=== PATIENT | female | born 1935 | race Caucasian/White ===

== ENCOUNTER 2020-08-18 18:24 | Inpatient (IN) | payer MEDICARE, BC, SELFPAY ==
[2020-08-18] VITALS (8 sets, daily range): BP systolic 106–143; BP diastolic 70–89; PULSE 97–115; RESP 17–21; TEMP 36.1–36.9; O2SAT 90–97; BMI 28.8
--- NOTE | ~2020-08-18 | XR_ITS ---
XR chest 1V portable 08/18/2020 19:20 Indication: Shortness of breath. CHF. COPD. Procedure: AP portable chest Comparison: Comparison to multiple prior studies sequentially, with oldest reviewed study dated 03/15. Findings: Cardiomegaly. Diffuse bilateral perihilar interstitial infiltrates. Right basilar atelectas is. No acute osseous abnormality. No pleural effusion or pneumothorax. There is atherosclerosis of th e aorta. Impression: 1: Bilateral perihilar interstitial infiltrates, most likely edema versus atypical pneumonia. 2: Right basilar atelectasis. Reviewed, dictated and finalized at location A. [facility] [employer] Impression: 1: Bilateral perihilar interstitial infiltrates, most likely edema versus atypi karl pneumonia. 2: Right basilar atelectasis.
--- NOTE | ~2020-08-18 | XR_ITS ---
EXAMINATION: XR chest 2V DATE: 08/20/2020 08:05 INDICATION: Shortness of breath TECHNIQUE: AP and lateral views of the chest are obtained. COMPARISON: 08/18/2020 FINDINGS: The patient is rotated. There is linear opacity in the right lung base. Small pleural effus ions are present. There is no pneumothorax. There is stable cardiomegaly. Chronic lower thoracic and upper lumbar compression fractures are unchanged. Calcified atherosclerosis is noted. IMPRESSION: 1. Stable cardiomegaly. 2. Linear opacity of the right lung base, likely subsegmental atelectasis. Reviewed, dictated and finalized at location A. ARTISAN
--- NOTE | 2020-08-18 18:45 | ECG_ITS ---
Measurements Intervals [place] Rate: 115 P: [place]: 0 QRS: -5 QRSD: 73 T: 60 QT: 306 QTc: 423 Interpretive Statements ATRIAL FIBRILLATION WITH RAPID VENTRICULAR RESPONSE DELAYED PRECORDIAL R/S TRANSITION BORDERLINE ST-T WAVE ABNORMALITY- ANTEROLAT/HIGH LAT LEADS BASELINE ARTIFACT- I, II, AVR, AVL, AVF, V1-V6 ABNORMAL ECG Electronically Signed On 08-19-2020 7:21:12 [employer] ARCHITECT by Finn Gonzalez D.O.
--- NOTE | 2020-08-18 18:56 | ED.SOB ---
HPI - SOB/Dyspnea General Chief Complaint: Shortness of Breath/Dyspnea Stated Complaint: SOB Source: RN notes reviewed History of Present Illness HPI Narrative: Patient presents to emergency department from [facility] via EMS for shortness of breath. Per staff they noted the patient to be blue in color today and took her pulse ox noted to be in the 80s. At that time she is placed on 2 L nasal cannula and transferred to the ED for further evaluation. The patient does note a feeling of some shortness of breath. She denies any fevers or chills chest pain abdominal pain nausea vomiting or any other symptoms. Related Data Home Medications Medication Instructions Recorded Confirmed acetaminophen 1,000 mg PO BID PRN 08/18/20 acetaminophen 650 mg PO Q4-6H PRN 08/18/20 alum-mag hydroxide-simeth [Maalox 30 ml PO QID PRN 08/18/20 Advanced] aspirin 81 mg PO DAILY 08/18/20 bisacodyl 10 mg IN DAILY PRN 08/18/20 buspirone 10 mg PO TID 08/18/20 duloxetine 60 mg PO DAILY 08/18/20 fluticasone propion-salmeterol 1 inh INHALATION BID 08/18/20 fluticasone propionate [Flonase] 2 spray INTRANASAL DAILY 08/18/20 furosemide 40 mg PO DAILY 08/18/20 gabapentin 100 mg PO BID 08/18/20 guaifenesin 200 mg PO QID PRN 08/18/20 hydrocodone-acetaminophen 1 tablet PO QID PRN 08/18/20 levalbuterol HCl 1.25 mg INHALATION QID 08/18/20 levalbuterol tartrate 1 puff INHALATION QID 08/18/20 magnesium hydroxide [Milk of 30 ml PO DAILY PRN 08/18/20 Magnesia] metoprolol tartrate 12.5 mg PO BID 08/18/20 mirtazapine 7.5 mg PO HS 08/18/20 pantoprazole 20 mg PO DAILY 08/18/20 polyethylene glycol 3350 [Miralax] 17 g PO DAILY PRN 08/18/20 spironolactone 25 mg PO DAILY 08/18/20 Allergies Allergy/AdvReac Type Severity Reaction Status Date / Time apixaban Allergy Unknown Other Verified 03/19/19 00:48 Review of Systems Review of Systems: Narrative: Gen.: Denies fevers or chills ENT: Denies congestion Respiratory: See HPI CV: Denies chest pain or palpitations GI: Denies abdominal pain nausea, emesis or diarrhea Musculoskeletal: Denies back pain or muscle pain Neuro: Denies numbness, tingling, weakness or focal weakness Skin: Denies rash Except as documented, all other systems reviewed and negative [facility] Past Medical History Medical History (Updated 08/18/20 @ 21:01 by Royal Vora DO) Atrial fibrillation CHF (congestive heart failure) COPD (chronic obstructive pulmonary disease) CVA (cerebral vascular accident) Hypertension Social History Social History (Updated 08/18/20 @ 18:58 by Royal Vora DO) Smoking status: Former smoker Exam Narrative: Exam Narrative: APPEARANCE: No acute distress, nontoxic, resting in bed EYES: EOMI HEENT: Normocephalic, atraumatic, OMM RESPIRATORY: No respiratory distress crackles in bilateral lung bases, no wheezing CARDIOVASCULAR: Irregular irregular without murmurs rubs or gallops. ABDOMINAL: Soft, nontender, nondistended, no rebound or guarding MUSCULOSKELETAl: Moves all extremities. No clubbing, cyanosis or edema. NEURO: Awake and alert. Following commands, speech normal, no focal deficits SKIN:: Warm, dry. No rashes lesions or abrasions PSYCHIATRIC: Normal affect/mood, Course Course Emergency Course: Reviewed old records Patient does note shortness of breath resting in bed. His pain worsens with her and move around in bed activities. Patient does have A. fib she is due for metoprolol 12.5 mg this evening and will give at this time Dr. Fitzgerald presentation work-up agrees with admission at this time. Will give a dose of Lasix 40 mg placed on MedSurg telemetry Discussed with patient and family results of workup and diagnosis. Discussed need for admission. Patient and family understand and agree to current treatment plan Vital Signs Vital signs: Vital Signs Temperature 98.0 F 08/18/20 18:43 Pulse Rate 115 H 08/18/20 18:43 Respiratory Rate 17 08/18/20 18:43 Blood Pressure 143/
[2020-08-18 19:21] LABS: Basophils Percent Auto 0.3 % (0.2-1.2); Eosinophils Percent Auto 0.3 % (0-4.4); Hematocrit 37.9 % (37.0-47.0); Hemoglobin 12.4 g/dL (12.0-15.0); Immature Granulocyte Absolute 0.06 K/mm3 (0.00-0.031); Immature Granulocyte Percent A 0.5 % (0-0.5); Lymphocytes Absolute Auto 0.74 K/mm3 (0.9-3.2); Lymphocytes Percent Auto 6.1 % (18.3-44.2); Mean Corpuscular HGB Conc 32.7 g/dl (32-36); Mean Corpuscular Hemoglobin 32.9 pg (26-34); Mean Corpuscular Volume 100.5 fl (80-100); Mean Platelet Volume 9.2 fl (7.4-10.4); Monocytes Absolute Auto 0.9 K/mm3 (0.1-0.6); Monocytes Percent Auto 7.8 % (2.6-8.5); Neutrophils Absolute Auto 10.3 K/mm3 (1.3-6.7); Platelet Count Result 290 k/mm3 (150-375); Red Blood Count 3.77 M/mm3 (4.2-5.4); Red Cell Distribution Width 13.6 % (11.5-14.5); White Blood Count 12.1 K/mm3 (4.5-10.0)
[2020-08-18 19:31] LABS: INR 1.2
[2020-08-18 19:32] LABS: Partial Thromboplastin Time 34.3 SECONDS (22.3-36.8)
[2020-08-18 19:33] LABS: Anion Gap 8 mmol/L (8-16); Blood Urea Nitrogen 32 mg/dL (7-17); Calcium 9.3 mg/dL (8.4-10.2); Carbon Dioxide 30 mmol/L (22-30); Chloride 97 mmol/L (98-107); Estimated Glomerular Filt Rate 39; Glucose 154 mg/dL (65-105); Potassium 4.9 mmol/L (3.4-5.0); Sodium 135 mmol/L (137-145)
[2020-08-18 19:46] LABS: NT Pro B Type Natriuretic Pept 3370 PG/ML (5-100); Troponin I 0.018 ng/mL (0.000-0.034)
[2020-08-18] MEDS: METOPROLOL TARTRATE 12.5 MG TABLET PO (20:14)
[2020-08-18] MEDS: FUROSEMIDE INJ 40 MG/4 ML VIAL IV PUSH (22:01)
--- NOTE | 2020-08-18 23:03 | ADMGEN ---
This patient, Mary George, was admitted to 2 Medical Room 251-01. Patient/family oriented to hospital policies and general routines including ID bracelet, bed and alarms, visiting hours, pain management, procedures, bathroom and other care routines, personal items, smoking policy, room service/diet, and visiting hours. Information on how to activate the Rapid Response Team has been discussed. Patient/Family are encouraged to report perceived risks to care and to ask questions if they do not understand what they are told or what they should do.
[2020-08-19] VITALS (12 sets, daily range): BP systolic 103–137; BP diastolic 60–80; PULSE 85–124; RESP 18–24; TEMP 36.2–37.6; O2SAT 93–100
[2020-08-19 00:36] LABS: Troponin I 0.015 ng/mL (0.000-0.034)
[2020-08-19 03:04] LABS: Basophils Absolute Auto 0.1 K/mm3 (0.0-0.1); Basophils Percent Auto 0.5 % (0.2-1.2); Eosinophils Absolute Auto 0.1 K/mm3 (0-0.3); Eosinophils Percent Auto 0.7 % (0-4.4); Hematocrit 37.5 % (37.0-47.0); Immature Granulocyte Absolute 0.03 K/mm3 (0.00-0.031); Immature Granulocyte Percent A 0.3 % (0-0.5); Lymphocytes Absolute Auto 1.06 K/mm3 (0.9-3.2); Lymphocytes Percent Auto 10.9 % (18.3-44.2); Mean Corpuscular Hemoglobin 32.3 pg (26-34); Mean Corpuscular Volume 100.8 fl (80-100); Mean Platelet Volume 9.4 fl (7.4-10.4); Monocytes Absolute Auto 1.4 K/mm3 (0.1-0.6); Monocytes Percent Auto 14.4 % (2.6-8.5); Neutrophils Absolute Auto 7.1 K/mm3 (1.3-6.7); Neutrophils Percent Auto 73.2 % (45.5-73.1); Platelet Count Result 277 k/mm3 (150-375); Red Blood Count 3.72 M/mm3 (4.2-5.4); Red Cell Distribution Width 13.6 % (11.5-14.5); White Blood Count 9.8 K/mm3 (4.5-10.0)
[2020-08-19 03:07] LABS: Anion Gap 8 mmol/L (8-16); Blood Urea Nitrogen 34 mg/dL (7-17); Calcium 9.4 mg/dL (8.4-10.2); Carbon Dioxide 33 mmol/L (22-30); Chloride 95 mmol/L (98-107); Estimated CRCL calculation 26 ml/min; Estimated Glomerular Filt Rate 39; Glucose 120 mg/dL (65-105); Potassium 4.8 mmol/L (3.4-5.0); Sodium 136 mmol/L (137-145)
[2020-08-19 03:19] LABS: Troponin I 0.017 ng/mL (0.000-0.034)
--- NOTE | 2020-08-19 06:46 | PM.IMHP ---
H&P: HPI History of Present Illness Date/Time: 08/19/20 05:20 Chief complaint: chf, dyspnea Narrative: Source of information: ER records and past medical records. Patient is alert and oriented only to self. Mary George is a 85 year old female with a past medical history of CVA, dementia, atrial fibrillation, diastolic congestive heart failure, COPD and diabetes who presented to the ER [facility] due to hypoxia. The patient does have a history of COPD with intermittent oxygen requirement. The patient was placed on 2 L nasal cannula patient was transferred to the ER. To the ER her oxygen saturations were between 90 and 94% on room air. The patient had evidently reported some shortness of breath to the ER staff but simply states ?help me? multiple times was in the room. After going through list of possible options to help the patient the patient finally indicated that she wanted to drink of water. She denies having any pain. The patient does not seem to be in any respiratory distress or discomfort. She does follow commands but has difficulty providing any history. The patient and does have a history of atrial fibrillation and her heart rate was slightly elevated in the ER. She had not received her evening metoprolol. This was provided for her in the ER. Her heart rate still remains in the low 100s. This a.m. the patient's temperature was slightly elevated to 99.6. Her chest x-ray does demonstrate perihilar interstitial infiltrates most likely edema versus atypical pneumonia. She did have leukocytosis on her initial CBC but her leukocytosis resolved without antibiotic therapy. Review of Systems Review of Systems: ROS unobtainable: Yes unobtainable due to mental status (Dementia) [facility]LY [facility] Past Medical History Medical History (Updated 08/19/20 @ 07:22 by Cher Fitzgerald DO) Atrial fibrillation No longer on anticoagulation due to recurrent anemia CHF (congestive heart failure) COPD (chronic obstructive pulmonary disease) With intermittent oxygen requirement Coronary artery disease CVA (cerebral vascular accident) September 2016 Depression with anxiety Diabetes mellitus Diet controlled Diastolic CHF Echocardiogram February 2018: Mild concentric left ventricular hypertrophy with sigmoid hypertrophy, EF 60 dizzy 5%, moderate enlargement of left atrium, moderate biatrial enlargement, mild mitral valve regurgitation, mild aortic valve regurgitation, moderate pulmonary hypertension with RVSP of 62, moderate to severe tricuspid valve regurgitation, dilated IVC without respiratory collapse consistent with elevated right atrial pressures Hypertension Uterine cancer Hysterectomy and radiation therapy Surgical History Surgical History (Updated 08/19/20 @ 07:06 by Cher Fitzgerald DO) History of appendectomy History of bilateral cataract extraction History of hip replacement, total Due to fracture History of hysterectomy for malignancy 1998 History of umbilical hernia repair Hx of cholecystectomy Family History Family History Mother Dementia Father Cerebrovascular accident Myocardial infarct Hypertension Sibling Diabetes mellitus Uterine cancer Son Crohn's disease Social History Social History (Updated 08/19/20 @ 07:11 by Cher Fitzgerald DO) Social History: The patient has smoked half a pack of cigarettes per day for 60 years. She quit in September of 2016 when she had her stroke. She is wheelchair dependent. Healthcare power of workers compensation attorney: Edson George Code status: DNR/DNI Smoking packs per day: 0.5 Smoking cigarettes per day: 10.0 Years smoked: 60 Smoking pack-years: 30.00 Smoking status: Former smoker Tobacco type: cigarettes Second hand tobacco smoke exposure: Yes Smoking end date: 09/17/16 Alcohol intake: never Substance use: never Living arrangements: prison Additional living arrangements com
[2020-08-19 07:26] LABS: Basophils Percent Auto 0.4 % (0.2-1.2); Eosinophils Absolute Auto 0.1 K/mm3 (0-0.3); Eosinophils Percent Auto 0.7 % (0-4.4); Hematocrit 36.9 % (37.0-47.0); Immature Granulocyte Absolute 0.03 K/mm3 (0.00-0.031); Immature Granulocyte Percent A 0.3 % (0-0.5); Lymphocytes Absolute Auto 1.07 K/mm3 (0.9-3.2); Lymphocytes Percent Auto 11.3 % (18.3-44.2); Mean Corpuscular HGB Conc 32.5 g/dl (32-36); Mean Corpuscular Hemoglobin 32.4 pg (26-34); Mean Corpuscular Volume 99.7 fl (80-100); Mean Platelet Volume 9.4 fl (7.4-10.4); Monocytes Absolute Auto 1.2 K/mm3 (0.1-0.6); Monocytes Percent Auto 12.4 % (2.6-8.5); Neutrophils Absolute Auto 7.1 K/mm3 (1.3-6.7); Neutrophils Percent Auto 74.9 % (45.5-73.1); Platelet Count Result 281 k/mm3 (150-375); Red Cell Distribution Width 13.7 % (11.5-14.5); White Blood Count 9.5 K/mm3 (4.5-10.0)
[2020-08-19 07:37] LABS: Anion Gap 8 mmol/L (8-16); Blood Urea Nitrogen 30 mg/dL (7-17); Calcium 9.3 mg/dL (8.4-10.2); Carbon Dioxide 32 mmol/L (22-30); Chloride 95 mmol/L (98-107); Estimated CRCL calculation 28 ml/min; Estimated Glomerular Filt Rate 43; Glucose 112 mg/dL (65-105); Potassium 4.2 mmol/L (3.4-5.0); Sodium 135 mmol/L (137-145)
[2020-08-19] MEDS: GABAPENTIN 100 MG CAPSULE PO ×2 (09:02→17:24)
[2020-08-19] MEDS: ACETAMINOPHEN 500 MG TABLET 1000 MG PO ×2 (09:02→20:10)
[2020-08-19] MEDS: FUROSEMIDE INJ 40 MG/4 ML VIAL IV PUSH (09:02)
[2020-08-19] MEDS: METOPROLOL TARTRATE 12.5 MG TABLET PO ×2 (09:03→20:10)
[2020-08-19] MEDS: DULoxetine HCL 60 MG CAPSULE.DR PO (09:05)
[2020-08-19] MEDS: ASPIRIN 81 MG CHEWABLE TABLET PO (09:05)
[2020-08-19] MEDS: busPIRone HCL 10 MG TABLET PO ×3 (09:06→17:24)
[2020-08-19] MEDS: PANTOPRAZOLE SOD SESQUIHYDRATE 20 MG TAB PO (09:06)
[2020-08-19] MEDS: SPIRONOLACTONE 25 MG TABLET PO (09:06)
[2020-08-19] MEDS: FLUTICASONE/SALMETEROL 115-21 MCG INHALER 1 PUFF 2 PUFF INHALATION ×2 (09:49→20:01)
[2020-08-19] MEDS: LEVALBUTEROL HFA (*SP) 15 GM INHALER 4 PUFF INHALATION ×4 (09:49→20:01)
--- NOTE | 2020-08-19 11:40 | PM.IMPN ---
Progress Note: A&P Assessment and Plan (1) Abnormal chest x-ray: Code(s): R93.89 - Abnormal findings on diagnostic imaging of other specified body structures Status: Acute Assessment and Plan: Compared with prior chest xr more likely to be fluid overload Lives at [facility] however no Covid 19 positive cases at the facility T max was 99.7 Afebrile O2 sat on room air = 95% Hold off on Covid swab Mild Leukocytosis on admission now resolved Will repeat chest xr in am Currently diuresing (2) Acute renal insufficiency: Code(s): N28.9 - Disorder of kidney and ureter, unspecified Status: Acute Assessment and Plan: Mild from patient's baseline Daily labs Continue to monitor Bun/Cr (3) COPD (chronic obstructive pulmonary disease): Qualifiers: COPD type: unspecified COPD Qualified Code(s): J44.9 - Chronic obstructive pulmonary disease, unspecified Code(s): J44.9 - Chronic obstructive pulmonary disease, unspecified Status: Acute Assessment and Plan: Continue breathing treatments. Spot check pulse ox. (4) Hypertension: Code(s): I10 - Essential (primary) hypertension Status: Acute Assessment and Plan: Stable Continue to monitor (5) CVA (cerebral vascular accident): Code(s): I63.9 - Cerebral infarction, unspecified Status: Acute Assessment and Plan: Stable continue to monitor. (6) CHF (congestive heart failure): Qualifiers: Heart failure chronicity: acute on chronic Heart failure type: diastolic Qualified Code(s): I50.33 - Acute on chronic diastolic (congestive) heart failure Code(s): I50.9 - Heart failure, unspecified Status: Acute Assessment and Plan: Strict I/O's daily Gentle diuresis Telemonitoring Commode at bed side (7) Atrial fibrillation: Qualifiers: Atrial fibrillation type: persistent (not longstanding) Qualified Code(s): I48.19 - Other persistent atrial fibrillation Code(s): I48.91 - Unspecified atrial fibrillation Status: Acute Assessment and Plan: Rate controlled Subjective Date/time seen: 08/19/20 11:40 Patient has no complains at this time. Review of Systems Review of Systems: Narrative: No complains at this time however appears hypoactive delirious ROS unobtainable: Yes unobtainable due to medical condition Exam Narrative: Exam Narrative: Appears acutely ill. Const: General: no acute distress and ill appearing Nutritional Appearance: thin Orientation/consciousness: oriented to person HENMT: Head: normal to inspection and normocephalic Ears: hearing grossly normal bilaterally General nose exam: Normal external nose present Face and sinus: normal facial exam Mouth: Yes Normal oral and palatal mucosa present Eyes: General: appearance normal, both eyes and all related structures Pupils: Equal, round and reactive pupils present EOM: EOMs intact bilaterally Neck: Neck: no lymphadenopathy and no JVD Lymphatic: no lymphadenopathy noted Resp: Effort & Inspection: normal respiratory effort Auscultation: clear to auscultation bilaterally Cardio: Jugular venous distension: no JVD Rate: regular rate Rhythm: regular rhythm Heart sounds: S1 normal heart sound present and S2 normal heart sound present Peripheral pulses: Peripheral pulses 2+ throughout GI: Inspection: normal to inspection GI Palp: Yes Soft to palpation and Yes No hepatosplenomegaly present Auscultation: normal bowel sounds Skin: General skin exam: normal color Lesions: no lesions Rashes: no rashes Trauma: no lacerations or abrasions Wounds: no wounds Neuro: General: oriented to person, CN's II-XI intact bilaterally and other (hypoactive delirium) Cranial nerves: Yes CN's II-XII intact bilaterally and Yes Equal, round and reactive pupils present Cognition (Neuro): normal cognition Speech: normal speech Motor exam (neuro): 5/5 motor strength present throughou
[2020-08-19] MEDS: HYDROcodone/acetaminophen (*CRX) 7.5-325 MG TABLET 1 TAB PO (14:40)
[2020-08-19] MEDS: FUROSEMIDE INJ 40 MG/4 ML VIAL 20 MG IV PUSH (17:24)
[2020-08-19 18:08] LABS: Add Urine Microscopic? YES; Appearance Urine Turbid (Clear); Bacteria Urine 2+ /hpf; Bilirubin Urine Negative (Negative); Blood Urine 1+ (Negative); Color Urine Yellow (Yellow); Glucose Urine UA Negative (Negative); Ketones Urine Negative (Negative); Leukocyte Esterase Ur 3+ LEU/UL (Negative); Nitrate Urine Negative (Negative); Protein Urine 2+ mg/dL (Negative); RBC Urine 51-75 /hpf (0-2); Specific Grav Ur 1.011 (1.001-1.035); Urobilinogen Urine Negative mg/dL (<2.0); WBC Clumps Urine Present /HPF; WBC Urine >75 /hpf
[2020-08-19 18:21] LABS: Influenza Control Positive
[2020-08-19] MEDS: MIRTAZAPINE 7.5 MG TABLET PO (20:10)
[2020-08-20] VITALS (14 sets, daily range): BP systolic 106–116; BP diastolic 59–84; PULSE 85–136; RESP 16–20; TEMP 36.3–37.2; O2SAT 93–100
[2020-08-20] MEDS: HYDROcodone/acetaminophen (*CRX) 7.5-325 MG TABLET 1 TAB PO ×2 (05:24→17:58)
[2020-08-20 08:00] LABS: Basophils Percent Auto 0.5 % (0.2-1.2); Eosinophils Absolute Auto 0.1 K/mm3 (0-0.3); Hematocrit 38.4 % (37.0-47.0); Hemoglobin 12.6 g/dL (12.0-15.0); Immature Granulocyte Absolute 0.05 K/mm3 (0.00-0.031); Immature Granulocyte Percent A 0.8 % (0-0.5); Lymphocytes Absolute Auto 0.82 K/mm3 (0.9-3.2); Lymphocytes Percent Auto 12.7 % (18.3-44.2); Mean Corpuscular HGB Conc 32.8 g/dl (32-36); Mean Corpuscular Hemoglobin 32.8 pg (26-34); Mean Platelet Volume 9.4 fl (7.4-10.4); Monocytes Absolute Auto 0.9 K/mm3 (0.1-0.6); Monocytes Percent Auto 13.8 % (2.6-8.5); Neutrophils Absolute Auto 4.5 K/mm3 (1.3-6.7); Neutrophils Percent Auto 70.2 % (45.5-73.1); Platelet Count Result 249 k/mm3 (150-375); Red Blood Count 3.84 M/mm3 (4.2-5.4); Red Cell Distribution Width 13.8 % (11.5-14.5); White Blood Count 6.4 K/mm3 (4.5-10.0)
[2020-08-20 08:13] LABS: Anion Gap 10 mmol/L (8-16); Blood Urea Nitrogen 37 mg/dL (7-17); Calcium 9.1 mg/dL (8.4-10.2); Carbon Dioxide 31 mmol/L (22-30); Chloride 97 mmol/L (98-107); Estimated CRCL calculation 28 ml/min; Estimated Glomerular Filt Rate 43; Glucose 120 mg/dL (65-105); Magnesium 1.6 mg/dL (1.6-2.3); Potassium 3.8 mmol/L (3.4-5.0); Sodium 138 mmol/L (137-145)
[2020-08-20] MEDS: ACETAMINOPHEN 500 MG TABLET 1000 MG PO ×2 (08:24→20:38)
[2020-08-20] MEDS: FUROSEMIDE INJ 40 MG/4 ML VIAL 20 MG IV PUSH ×2 (08:25→17:51)
[2020-08-20] MEDS: PANTOPRAZOLE SOD SESQUIHYDRATE 20 MG TAB PO (08:25)
[2020-08-20] MEDS: SPIRONOLACTONE 25 MG TABLET PO (08:25)
[2020-08-20] MEDS: busPIRone HCL 10 MG TABLET PO ×3 (08:25→17:50)
[2020-08-20] MEDS: GABAPENTIN 100 MG CAPSULE PO ×2 (08:25→17:51)
[2020-08-20] MEDS: DULoxetine HCL 60 MG CAPSULE.DR PO (08:25)
[2020-08-20] MEDS: ASPIRIN 81 MG CHEWABLE TABLET PO (08:25)
[2020-08-20] MEDS: METOPROLOL TARTRATE 12.5 MG TABLET PO ×2 (08:26→20:38)
[2020-08-20] MEDS: FLUTICASONE/SALMETEROL 115-21 MCG INHALER 1 PUFF 2 PUFF INHALATION ×2 (09:24→20:21)
[2020-08-20] MEDS: LEVALBUTEROL HFA (*SP) 15 GM INHALER 4 PUFF INHALATION ×4 (09:24→20:21)
[2020-08-20] MEDS: MAG HYDROX/AL HYDROX/SIMETH 30 ML UDC PO (11:35)
--- NOTE | 2020-08-20 16:25 | PM.IMPN ---
Progress Note: A&P Assessment and Plan (1) Abnormal chest x-ray: Code(s): R93.89 - Abnormal findings on diagnostic imaging of other specified body structures Status: Acute Assessment and Plan: Compared with prior CXR more likely to be fluid overload with possible mild acute diastolic CHF exacerbation. CXR today shows possible slight improvement in perihilar infiltrates. Lives at SNF however no Covid 19 positive cases at the facility. Afebrile during stay. VSS. Sat >90% on RA during stay. Mild Leukocytosis on admission now resolved Currently diuresing with IV Lasix BID Monitor I/Os Monitor for improvement If continued improvement, consider discharge in 1-2 days COVID testing pending for her to return to [place] (2) Acute renal insufficiency: Code(s): N28.9 - Disorder of kidney and ureter, unspecified Status: Acute Assessment and Plan: Mild from patient's baseline. Cr stable today at 1.20 Monitor daily labs with diuresis (3) COPD (chronic obstructive pulmonary disease): Qualifiers: COPD type: unspecified COPD Qualified Code(s): J44.9 - Chronic obstructive pulmonary disease, unspecified Code(s): J44.9 - Chronic obstructive pulmonary disease, unspecified Status: Acute Assessment and Plan: No wheezing noted on exam. Stable Continue breathing treatments. Continue home meds' Monitor (4) Hypertension: Code(s): I10 - Essential (primary) hypertension Status: Acute Assessment and Plan: Stable. BP 110s sys this afternoon Continue to monitor during IV diuresis Continue other home antihypertensives (5) CVA (cerebral vascular accident): Code(s): I63.9 - Cerebral infarction, unspecified Status: Acute Assessment and Plan: Stable continue to monitor. continue home meds (6) CHF (congestive heart failure): Qualifiers: Heart failure chronicity: acute on chronic Heart failure type: diastolic Qualified Code(s): I50.33 - Acute on chronic diastolic (congestive) heart failure Code(s): I50.9 - Heart failure, unspecified Status: Acute Assessment and Plan: Possible mild acute diastolic CHF exacerbation with fluid overload. Strict I/O's daily Gentle diuresis as above Telemonitoring Commode at bed side (7) Atrial fibrillation: Qualifiers: Atrial fibrillation type: persistent (not longstanding) Qualified Code(s): I48.19 - Other persistent atrial fibrillation Code(s): I48.91 - Unspecified atrial fibrillation Status: Acute Assessment and Plan: Rate controlled Continue home metoprolol Subjective Date/time seen: 08/20/20 16:25 Interval history: Patient is a 85 yo F with history of past CVA, CHF, COPD, CAD, DM, and HTN who is seen in follow up for fluid overload and mild CHF exacerbation and ARF. Patient states she feels okay today; feels overall better. She confirms she has a difficult time expressing her self but is able to answer questions appropriately with yes/no. She denies chest pain or shortness of breath. She endorses worsening swelling in her LE prior to arrival; unable to tell me if this has improved since arrival. She has no other complaints. Denies f/c/s, cp/palpitations, sob/cough, n/v/d/c, abd pain, dysuria, calf pain. She is able to tell me she is in the hospital, but has difficult time expressing her name, year, , or president Review of Systems Review of Systems: ROS unobtainable: Yes unobtainable due to medical condition and unobtainable due to mental status (Dementia) Exam Narrative: Exam Narrative: General: Patient resting on left side in bed in no acute distress. HEENT: N
[2020-08-20] MEDS: MIRTAZAPINE 7.5 MG TABLET PO (20:38)
[2020-08-20 20:50] LABS: SARS-CoV-2 RNA PCR Negative
[2020-08-21] VITALS (9 sets, daily range): BP systolic 126; BP diastolic 94; PULSE 95–112; RESP 18; TEMP 36.4–38.8; O2SAT 91–99
--- NOTE | 2020-08-21 05:00 | PC.NURSE ---
Repeat temp 98.1
[2020-08-21 06:03] LABS: Anion Gap 8 mmol/L (8-16); Blood Urea Nitrogen 42 mg/dL (7-17); Carbon Dioxide 35 mmol/L (22-30); Chloride 95 mmol/L (98-107); Estimated CRCL calculation 24 ml/min; Estimated Glomerular Filt Rate 36; Glucose 139 mg/dL (65-105); Magnesium 1.7 mg/dL (1.6-2.3); Sodium 138 mmol/L (137-145)
[2020-08-21 07:19] LABS: Basophils Percent Auto 0.4 % (0.2-1.2); Eosinophils Absolute Auto 0.1 K/mm3 (0-0.3); Eosinophils Percent Auto 1.1 % (0-4.4); Hematocrit 37.4 % (37.0-47.0); Hemoglobin 12.1 g/dL (12.0-15.0); Immature Granulocyte Absolute 0.04 K/mm3 (0.00-0.031); Immature Granulocyte Percent A 0.5 % (0-0.5); Lymphocytes Absolute Auto 0.77 K/mm3 (0.9-3.2); Lymphocytes Percent Auto 10.5 % (18.3-44.2); Mean Corpuscular HGB Conc 32.4 g/dl (32-36); Mean Corpuscular Hemoglobin 32.3 pg (26-34); Mean Corpuscular Volume 99.7 fl (80-100); Neutrophils Absolute Auto 5.4 K/mm3 (1.3-6.7); Neutrophils Percent Auto 73.5 % (45.5-73.1); Platelet Count Result 266 k/mm3 (150-375); Red Blood Count 3.75 M/mm3 (4.2-5.4); Red Cell Distribution Width 13.8 % (11.5-14.5); White Blood Count 7.3 K/mm3 (4.5-10.0)
[2020-08-21] MEDS: FUROSEMIDE INJ 40 MG/4 ML VIAL 20 MG IV PUSH (08:32)
[2020-08-21] MEDS: DULoxetine HCL 60 MG CAPSULE.DR PO (08:32)
[2020-08-21] MEDS: busPIRone HCL 10 MG TABLET PO ×2 (08:32→12:24)
[2020-08-21] MEDS: ASPIRIN 81 MG CHEWABLE TABLET PO (08:32)
[2020-08-21] MEDS: ACETAMINOPHEN 500 MG TABLET 1000 MG PO (08:32)
[2020-08-21] MEDS: PANTOPRAZOLE SOD SESQUIHYDRATE 20 MG TAB PO (08:33)
[2020-08-21] MEDS: SPIRONOLACTONE 25 MG TABLET PO (08:33)
[2020-08-21] MEDS: GABAPENTIN 100 MG CAPSULE PO (08:33)
[2020-08-21] MEDS: METOPROLOL TARTRATE 12.5 MG TABLET PO (08:33)
--- NOTE | 2020-08-21 09:03 | PM.DS ---
DS: Admitting Diagnosis Admitting Diagnosis Admitting Diagnosis: chf, dyspnea DS: Discharge Diagnosis Discharge Diagnosis (1) Abnormal chest x-ray: Code(s): R93.89 - Abnormal findings on diagnostic imaging of other specified body structures Status: Acute Assessment and Plan: Compared with prior CXR more likely to be fluid overload with possible mild acute diastolic CHF exacerbation. CXR today shows possible slight improvement in perihilar infiltrates. Lives at SNF however no Covid 19 positive cases at the facility. Isolated fever overnight of 101.8 that seemed to have resolved spontaneously shortly therafter. VSS. Predominantly on RA satting >90%, however briefly placed on 2L O2 NC overnight which has since been removed and satting 97% on RA at time of visit. Patient clinically has improved and has no respiratory complaints for me this morning. COVID testing negative. Mild Leukocytosis on admission now resolved Will d/c today back to [facility] F/u with PCP/SD physician COVID negative for placement (2) Acute renal insufficiency: Code(s): N28.9 - Disorder of kidney and ureter, unspecified Status: Acute Assessment and Plan: Mild from patient's baseline. Cr stable today at 1.40. Likely due to IV diuresis Will repeat BMP on 08/23 F/u with PCP (3) COPD (chronic obstructive pulmonary disease): Qualifiers: COPD type: unspecified COPD Qualified Code(s): J44.9 - Chronic obstructive pulmonary disease, unspecified Code(s): J44.9 - Chronic obstructive pulmonary disease, unspecified Status: Acute Assessment and Plan: No wheezing noted on exam. Stable Continue home meds' F/u with PCP (4) Hypertension: Code(s): I10 - Essential (primary) hypertension Status: Acute Assessment and Plan: Stable. BP 120s sys this morning Continue home antihypertensives Resume home Lasix (5) CVA (cerebral vascular accident): Code(s): I63.9 - Cerebral infarction, unspecified Status: Acute Assessment and Plan: Stable continue home meds (6) CHF (congestive heart failure): Qualifiers: Heart failure chronicity: acute on chronic Heart failure type: diastolic Qualified Code(s): I50.33 - Acute on chronic diastolic (congestive) heart failure Code(s): I50.9 - Heart failure, unspecified Status: Acute Assessment and Plan: Possible mild acute diastolic CHF exacerbation with fluid overload. Strict I/O's daily during stay although appears inaccurate documentation given incontinence Gentle diuresis during stay as above Commode at bed side (7) Atrial fibrillation: Qualifiers: Atrial fibrillation type: persistent (not longstanding) Qualified Code(s): I48.19 - Other persistent atrial fibrillation Code(s): I48.91 - Unspecified atrial fibrillation Status: Acute Assessment and Plan: Rate controlled Continue home metoprolol DS: Summary Hospital Course Reason for hospitalization: Abnormal CXR, COVID r/o, possible fluid overload, MARJORIE, Hospital Course: Patient is a 85 year old female with a past medical history of CVA, dementia, atrial fibrillation, diastolic congestive heart failure, COPD and diabetes who presented [facility] the ER [facility] due to hypoxia. Patient was found to be hypoxic at the SD and was placed on 2L NC and sent to the ED for further evaluatino where her O2 sat were between 90-94% on RA. Patient reported SOB to ER staff. CXR demonstrated perihilar interstitial infiltrates most likely edema vs atypical PNA. Patient admitted under this setting. Please see H&P for further details. Patient was admitted to the hospitalis
[2020-08-21] MEDS: FLUTICASONE/SALMETEROL 115-21 MCG INHALER 1 PUFF 2 PUFF INHALATION (09:13)
[2020-08-21] MEDS: LEVALBUTEROL HFA (*SP) 15 GM INHALER 4 PUFF INHALATION (09:14)
== END 2020-08-21 16:05 | DRG 292 ==
LOC: ANHED 21:01 → ANH2MED 21:20
PROVIDERS: Admitting Provider Internal Medicine; Emergency Provider Emergency Medicine; PCP Family Medicine; Visit Provider Physician Assistant
DX: I11.0 Hypertensive heart disease with heart failure (principal); I48.20 Chronic atrial fibrillation, unspecified; I50.33 Acute on chronic diastolic (congestive) heart failure; Z20.828 Contact with and (suspected) exposure to other viral communicable diseases; J44.9 Chronic obstructive pulmonary disease, unspecified; F03.90 Unspecified dementia, unspecified severity, without behavioral disturbance, psychotic disturbance, mood disturbance, and anxiety; E11.9 Type 2 diabetes mellitus without complications; R09.02 Hypoxemia; I25.10 Atherosclerotic heart disease of native coronary artery without angina pectoris; D72.829 Elevated white blood cell count, unspecified; N28.9 Disorder of kidney and ureter, unspecified; Z85.42 Personal history of malignant neoplasm of other parts of uterus; F41.8 Other specified anxiety disorders; Z96.649 Presence of unspecified artificial hip joint; Z86.73 Personal history of transient ischemic attack (TIA), and cerebral infarction without residual deficits; Z87.891 Personal history of nicotine dependence; Z90.710 Acquired absence of both cervix and uterus; Z98.42 Cataract extraction status, left eye; Z98.41 Cataract extraction status, right eye; Z90.49 Acquired absence of other specified parts of digestive tract
CPT/HCPCS: 36415; 71045; 71046; 80048; 81001; 83735; 83880; 84484; 85025; 85610; 85730; 87040; 87086; 87088; 87635; 87804; 93005; 94640; 96374; 96376; 99285; A9270; C9803; G0378; J1940; U0003

== ENCOUNTER 2021-04-12 12:46 | Inpatient (IN) | payer MEDICARE, BC, SELFPAY ==
[2021-04-12] VITALS (25 sets, daily range): BP systolic 96–163; BP diastolic 53–106; PULSE 93–120; RESP 13–23; TEMP 36.5–36.7; O2SAT 77–100
--- NOTE | ~2021-04-12 | XR_ITS ---
EXAMINATION: XR retrograde pyelogram BI DATE: 04/13/2021 09:50 CDT INDICATION: TURP procedure TECHNIQUE: Multiple fluoroscopic images from a lateral retrograde pyelogram are submitted for review. 77 fluoroscopic images. 21 seconds of fluoroscopy. FINDINGS: There is normal contrast opacification of the ureters which are normal in course and calibe r. No filling defects, strictures or extravasation are identified. There is extensive atherosclerosis of the abdominal and pelvic vasculature. There is a right bipolar hemiarthroplasty. IMPRESSION: 1. Unremarkable bilateral retrograde pyelogram.. Correlate with real time procedural findings for de tails. Reviewed, dictated and finalized at location A. IMPRESSION: 1. Unremarkable bilateral retrograde pyelogram.. Correlate with real time proc edural findings for details.
--- NOTE | ~2021-04-12 | XR_ITS ---
XR chest 1V portable 04/12/2021 22:50 Indication: Hypoxia Procedure: AP portable chest Comparison: Comparison to multiple prior studies sequentially, with oldest reviewed study dated 07/10. Findings: Cardiomegaly with bilateral interstitial infiltrates. No significant effusion or pneumothor ax. No acute osseous abnormality. Impression: 1: Bilateral interstitial infiltrates may represent edema or pneumonia. 2: Cardiomegaly. Reviewed, dictated and finalized at location A. Impression: 1: Bilateral interstitial infiltrates may represent edema or pneumonia. 2: Cardiomegaly.
--- NOTE | ~2021-04-12 | CT_ITS ---
EXAMINATION: CT abdomen pelvis wo con DATE: 04/12/2021 15:26 INDICATION: Abdominal pain. Vaginal bleeding. TECHNIQUE: Computed tomography (CT) of the abdomen and pelvis was performed without intravenous contr ast. Automated exposure control and iterative reconstruction technique were employed. The dose-length product was 350.21 mGy-cm. COMPARISON: CT abdomen 03/10/2018 FINDINGS: The visualized portions of the lung bases demonstrate emphysema. There is atelectasis in th e lungs, worst in right lower lobe. A calcified right lung nodule is consistent with old granulomatou s disease. There is a trace right pleural effusion. There is biatrial enlargement of the heart. There are coronary artery calcifications. There are calcifications of the aortic valve. No pericardial eff usion. The liver demonstrates surface nodularity, consistent with cirrhosis. There are changes of cho lecystectomy. The spleen, pancreas, and right adrenal gland are normal. There is a chronic 15 mm mass in the left adrenal gland, consistent with an adenoma. There is mild bilateral hydronephrosis and hy droureter. There is a 5.4 cm mass in the bladder. There is diverticulosis of the colon without eviden ce of diverticulitis. There are no dilated loops of bowel. The appendix is not visualized. There is a large widemouthed ventral hernia containing nonobstructed bowel. There are no pathologically enlarge d lymph nodes. There is no free intraperitoneal fluid. There is a right hip arthroplasty. There are o ld healed left rib fractures. There is a chronic burst fracture of L1. There are chronic compression fractures of T11 and T12. There is severe thoracolumbar spondylosis. IMPRESSION: 1. 5.4 cm mass in the bladder, which may be a hematoma and/or malignancy. 2. Mild bilateral hydronephrosis and hydroureter. 3. Large widemouthed ventral hernia containing nonobstructed bowel. 4. Cirrhosis of the liver. Reviewed, dictated and finalized at location A.
--- NOTE | ~2021-04-12 | US_ITS ---
EXAMINATION: US pelvic complete DATE: 04/12/2021 15:15 INDICATION: Vaginal bleeding. TECHNIQUE: Multiple transabdominal sonographic images of the pelvis were obtained. COMPARISON: CT abdomen and pelvis 05/19/17 FINDINGS: The uterus is absent. There is no free fluid in the pelvis. The ovaries are not visualized. There is a 5.3 x 4.6 x 4.6 cm heterogeneous mass in the bladder. Internal vascular flow is not demonstrated. IMPRESSION: 1. 5.3 cm mass in the bladder, which may be hematoma and/or malignancy. 2. Absent uterus. 3. Ovaries not identified. Reviewed, dictated and finalized at location A.
--- NOTE | 2021-04-12 13:05 | ED.FEMALEGU ---
HPI - Female Genitourinary General Chief complaint: Vaginal Bleeding Stated complaint: abd pain Time Seen by Provider: 04/12/21 13:03 Source: patient and EMS Mode of arrival: EMS Limitations: dementia History of Present Illness HPI Narrative: Patient is an 85-year-old female with a history of CVA, dementia, atrial fibrillation, diastolic congestive heart failure, COPD and diabetes who presents for evaluation of abdominal pain and heavy vaginal bleeding as reported by nursing staff at correction facility. Patient transported via EMS with stable vital signs. Patient with Alzheimer's dementia, difficult historian at baseline. Patient is reporting mild abdominal pain. Unable to provide any additional history. Per chart review, patient is not on any anticoagulation. Patient son at bedside, also unable to private aide any history currently. Patient is DNR. Related Data Home Medications Medication Instructions Recorded Confirmed acetaminophen 325 mg PO Q4-5H PRN 04/12/21 acetaminophen 500 mg PO BID 04/12/21 alum-mag hydroxide-simeth [Maalox 30 ml PO QID PRN 04/12/21 Advanced] aspirin mg PO 04/12/21 bisacodyl 10 mg RECTAL DAILY PRN 04/12/21 buspirone 10 mg PO TID 04/12/21 cholecalciferol (vitamin D3) 50 mcg PO DAILY 04/12/21 duloxetine 60 mg PO DAILY 04/12/21 fluticasone propion-salmeterol 1 inh INHALATION Q12H 04/12/21 [Advair Diskus] furosemide 40 mg PO DAILY 04/12/21 gabapentin 100 mg PO DAILY 04/12/21 gabapentin 300 mg PO DAILY 04/12/21 guaifenesin 200 mg PO Q4H PRN 04/12/21 hydrocodone-acetaminophen 1 tablet PO Q6H PRN 04/12/21 04/12/21 levalbuterol tartrate 1 puff INHALATION Q6H 04/12/21 magnesium hydroxide [Milk of 30 ml PO DAILY PRN 04/12/21 Magnesia] metoprolol tartrate 12.5 mg PO DAILY 04/12/21 mirtazapine [Remeron] 15 mg PO HS 04/12/21 lwbraems-swzxt-wtejfjj-diperod ea TOPICAL 04/12/21 dvhairas-ufxehxxkrHt-pailgrpkQ 1 applic TOPICAL DAILY 04/12/21 [Triple Antibiotic] nystatin 1 applic TOPICAL TID PRN 04/12/21 pantoprazole 20 mg PO QAM 04/12/21 polyethylene glycol 3350 17 g PO PRN PRN 04/12/21 spironolactone 25 mg PO DAILY 04/12/21 Allergies Allergy/AdvReac Type Severity Reaction Status Date / Time apixaban AdvReac Unknown Verified 04/12/21 12:58 Review of Systems Review of Systems: ROS unobtainable: Yes unobtainable due to medical condition [facility] Social History Social History (Updated 04/12/21 @ 13:57 by Shivani Crawford MD) Smoking status: Smoker, status unknown Alcohol intake: never Substance use: never Living arrangements: correction Exam Narrative: Exam Narrative: GENERAL: Awake, alert, thin, frail, elderly appearing HEAD: Normocephalic, atraumatic. EYES: PERRLA and EOMI. ENT: Nares clear, no rhinorrhea or epistaxis. Mucous membranes dry NECK: Supple. CHEST: No respiratory distress, breathing even and non labored HEART: Regular rate, sinus rhythm ABDOMEN:Post surgical changes, hernia present, mild distension, mildly tender to palpation with guarding : Speculum inserted, small amount of vaginal blood, no large blood clot EXTREMITIES: Normal range of motion. No edema. SKIN: Warm, dry, no rash. NEURO:Dementia, hemiplegia and hemiparesis at baseline, atrophy bilateral lower extremities Course Vital Signs Vital signs: Vital Signs Temperature 36.5 C 04/12/21 12:49 Pulse Rate 94 04/12/21 12:49 Respiratory Rate 17 04/12/21 12:49 Blood Pressure 147/101 H 04/12/21 12:49 Pulse Oximetry 97 04/12/21 12:49 Temperature 36.5 C 04/12/21 14:46 Pulse Rate 93 04/12/21 16:58 Respiratory Rate 16 04/12/21 16:58 Blood Pressure 109/55 L 04/12/21 16:58 Pulse Oximetry 92 04/12/21 16:58 MDM - Female Genitourinary MDM Narrative Medical decision making narrative: Patient presenting for evaluation of vaginal bleeding versus hematuria. At the time of assessment, patient is tachycardic and tachypneic. Her abdominal exam is notable fo
[2021-04-12 13:57] LABS: Basophils Percent Auto 0.3 % (0.2-1.2); Eosinophils Absolute Auto 0.1 K/mm3 (0-0.3); Eosinophils Percent Auto 0.9 % (0-4.4); Hematocrit 39.7 % (37.0-47.0); Hemoglobin 12.4 g/dL (12.0-15.0); Immature Granulocyte Absolute 0.08 K/mm3 (0.00-0.031); Immature Granulocyte Percent A 0.6 % (0-0.5); Lymphocytes Absolute Auto 1.05 K/mm3 (0.9-3.2); Lymphocytes Percent Auto 7.8 % (18.3-44.2); Mean Corpuscular HGB Conc 31.2 g/dl (32-36); Mean Corpuscular Hemoglobin 30.5 pg (26-34); Mean Corpuscular Volume 97.5 fl (80-100); Mean Platelet Volume 9.5 fl (7.4-10.4); Monocytes Absolute Auto 1.3 K/mm3 (0.1-0.6); Monocytes Percent Auto 9.5 % (2.6-8.5); Neutrophils Absolute Auto 10.9 K/mm3 (1.3-6.7); Neutrophils Percent Auto 80.9 % (45.5-73.1); Platelet Count Result 401 k/mm3 (150-375); Red Blood Count 4.07 M/mm3 (4.2-5.4); Red Cell Distribution Width 14.1 % (11.5-14.5); White Blood Count 13.4 K/mm3 (4.5-10.0)
[2021-04-12 14:05] LABS: Add Urine Microscopic? YES; Appearance Urine Turbid (Clear); Bacteria Urine Unable to determine /hpf; Bilirubin Urine Negative (Negative); Blood Urine 3+ (Negative); Color Urine Dark Red (Yellow); Glucose Urine UA 1+ mg/dL (Negative); Ketones Urine 1+ mg/dL (Negative); Leukocyte Esterase Ur Negative LEU/UL (Negative); Nitrate Urine Negative (Negative); Protein Urine 2+ mg/dL (Negative); RBC Urine >75 /hpf (0-2); Specific Grav Ur 1.039 (1.001-1.035); Squamous Epithelial Cell Urine Unable to determine /hpf (Few); Urobilinogen Urine Negative mg/dL (<2.0); WBC Urine >75 /hpf
[2021-04-12 14:07] LABS: INR 1.1; Prothrombin Time 14.4 Seconds (11.1-14.7)
[2021-04-12 14:08] LABS: Alanine Aminotransferase 9 U/L (4-35); Albumin Level 4.1 g/dL (3.5-5.1); Alkaline Phosphatase 124 U/L (38-126); Anion Gap 12 mmol/L (8-16); Aspartate Amino Transferase 23 U/L (14-36); Bilirubin,Total 0.6 mg/dL (0.2-1.3); Blood Urea Nitrogen 32 mg/dL (7-17); Calcium 9.5 mg/dL (8.4-10.2); Carbon Dioxide 23 mmol/L (22-30); Chloride 103 mmol/L (98-107); Estimated CRCL calculation 17 ml/min; Estimated Glomerular Filt Rate 24; Glucose 151 mg/dL (65-105); Partial Thromboplastin Time 32.4 SECONDS (22.3-36.8); Potassium 4.5 mmol/L (3.4-5.0); Sodium 138 mmol/L (137-145)
[2021-04-12] MEDS: SODIUM CHLORIDE 0.9% IV 500 ML 999 ML IV CONT (14:16)
[2021-04-12] MEDS: MORPHINE SULFATE (*CRX) 2 MG/ML INJ IV PUSH ×3 (14:16→20:16)
[2021-04-12] MEDS: ONDANSETRON INJ 4 MG/2 ML VIAL IV PUSH (14:16)
[2021-04-12 16:09] LABS: Lactic Acid Reflex 2.2 mmol/L (0.7-2.1)
--- NOTE | 2021-04-12 17:00 | PC.NURSE ---
per EDP Ty CBI was not started, 3-way catheter was inserted without starting CBI.
--- NOTE | 2021-04-12 18:00 | PM.IMHP ---
H&P: HPI History of Present Illness Date/Time: 04/12/21 18:00 Chief Complaint: Abdominal pain and vaginal bleeding. Narrative: This is an 85-year-old female with multiple medical problems including history of stroke, dementia, coronary artery disease, diastolic congestive heart failure, hypertension, paroxysmal atrial fibrillation no longer on anticoagulation due to recurrent anemia and falls, COPD and uterine cancer status post hysterectomy with radiation therapy who presented to the emergency department earlier today via EMS from [facility] for evaluation of abdominal pain and vaginal bleeding. due to her underlying dementia she is not a good historian as such a majority of the following is obtained via a review of her electronic medical records as well as discussions with her son, Bharat, with the patient's permission. It is my understanding that she began complaining of vague abdominal discomfort today and not long prior to arrival she was found to have heavy vaginal bleeding with clots. Exam in the emergency department showed only a small amount of blood in the vaginal canal and it was felt that the bleeding was likely coming from the urethra. Pelvic ultrasound and CT of the abdomen and pelvis showed a mass in the bladder which may be a hematoma and/or malignancy as well as bilateral mild hydro ureteral nephrosis. She is now being admitted for further workup and will be started on CBI this evening. At the time my evaluation she does not have any significant abdominal discomfort or complaints. She specifically denies fever, chills, sweats, chest pain, shortness of breath, nausea, vomiting, dysuria, and diarrhea. Review of Systems Review of Systems: Narrative: Twelve systems were reviewed with pertinent positives and negatives as per HPI. Somewhat limited given her pretty significant short-term memory loss. The patient has not had any recent cold or flu symptoms. She did have COVID-19 within the past year but had a relatively mild case. Patient does carry the diagnosis of COPD however she has not had issues with that for awhile. Her weight has remained relatively stable, decreasing somewhat over the years however no significant weight loss recently. She has a large ventral hernia but they are not interested in pursuing another surgery as she does not have much pain with that. Except as documented, all other systems were reviewed and are negative. [facility] Past Medical History Medical History (Updated 04/12/21 @ 21:26 by Chelsy Canales PA-C) Arthritis Chronic kidney disease Baseline creatinine is around 1.30. Chronic obstructive pulmonary disease Cirrhosis of liver Noted on imaging dated 04/12/2021. Coronary artery disease Dementia Depression with anxiety Diastolic congestive heart failure echocardiogram in February 2018 showed mild concentric LVH with sigmoid hypertrophy, and EF of 60 to 65%, moderate biatrial enlargement, mild mitral valve regurgitation, mild aortic valve regurgitation, moderate to severe tricuspid valve regurgitation, moderate pulmonary hypertension with an RSVP of 62 mmHg. Gastroesophageal reflux disease History of cerebrovascular accident (09/2016) Hypertension Paroxysmal atrial fibrillation Not on long-term anticoagulation due to history of recurrent anemia and falls. Uterine cancer Status post hysterectomy therapy. Surgical History Surgical History (Updated 04/12/21 @ 21:07 by Chelsy Canales PA-C) History of appendectomy History of bilateral cataract extraction History of cholecystectomy History of hysterectomy for malignancy (1998) History of umbilical hernia repair Family History Family History (Updated 04/12/21 @ 21:08 by Chelsy Canales PA-C) Mother Dementia Father Cerebrovascular accident Hypertension Acute myocardial infarction Social History Social History (Updated 04/12/21 @ 21:09 by Chelsy Canales PA-C) Social History: The patient is a resident at [facility]. She is [facility]
[2021-04-12 18:57] LABS: Reflex Lactic Acid Yes or No Add Lactic
[2021-04-12 19:47] LABS: Lactic Acid 1.9 mmol/L (0.7-2.1)
--- NOTE | 2021-04-12 20:18 | PM.CNCAR ---
Assessment and Plan Assessment and plan (1) Preop cardiovascular exam: Code(s): Z01.810 - Encounter for preprocedural cardiovascular examination Status: Acute Assessment and Plan: EKG now. Risk profile: Stroke, atrial fibrillation, DM, diastolic dysfunction, COPD. Clinical status: No chest pain or sob. Functional status<4 METs as she cannot ambulate since her stroke. Moderate risk urologic procedures. May proceed to noncardiac urologic procedures without further cardiac workup as this appears to be urgent to prevent sepsis, acute renal failure, active bleeding, from this. (2) Atrial fibrillation: Code(s): I48.91 - Unspecified atrial fibrillation Status: Acute Assessment and Plan: She is on aspirin only despite a high [id number] score of 7 due to history of hemoccult positive, falls, history of anemia. Rate control with Metoprolol. (3) Hypertension: Code(s): I10 - Essential (primary) hypertension Status: Acute Assessment and Plan: Stable. (4) Diastolic dysfunction: Code(s): I51.89 - Other ill-defined heart diseases Status: Acute Assessment and Plan: Stable. (5) Acute renal failure: Code(s): N17.9 - Acute kidney failure, unspecified Status: Acute History of Present Illness History of Present Illness Consult date/time: 04/12/21 20:18 Reason for consult: Preop risk stratification for noncardiac surgery. 85 yr old woman presents to ER from longterm with abdominal pain. She is my cardiology patient, but the last time I saw her was 05/27/18 as she has not followed up with me since. She has a history of dementia, stroke in 2016, atrial fibrillation, COPD, DM, diastolic dysfunction. She is unable to walk since her stroke due to falls and balance issues with residual left sided weakness. She is a poor historian so not much history is obtainable from her regarding this presentation. She appears to be in a lot of pain as her dobbs has clotted and nurse cannot get it unclotted. Patient is oriented to her name only. In ED labs shows she has Cr 2.0/GFR 17 (Cr was 0.8/GFR >60 on 03/16/18), lactic acid 2.2, WBC 13.4. CT abd shows 5.4 cm mass in bladder, either hematoma and/or malignancy, mild bilateral hydronephrosis and hydroureter; large ventral hernia containing non-obstructed bowel; cirrhosis of liver. Last echo on 03/11/18 EF 60-65%, mild LVH, diastolic dysfunction, mod biatrial enlargement, mild MR/AI, mod-severe TR, RVSP 62 mmHg. Reason For Visit: Bladder Mass vs Hematoma, Urinary Obstruction Review of Systems Review of Systems: ROS unobtainable: Yes unobtainable due to mental status [facility] Social History Social History (Updated 04/12/21 @ 13:57 by Shivani Crawford MD) Smoking status: Smoker, status unknown Alcohol intake: never Substance use: never Living arrangements: longterm Meds Home Medications and Allergies Home Medications Medication Instructions Recorded Confirmed Type acetaminophen 325 mg PO Q4-5H PRN 04/12/21 History acetaminophen 500 mg PO BID 04/12/21 History alum-mag hydroxide-simeth [Maalox 30 ml PO QID PRN 04/12/21 History Advanced] aspirin mg PO 04/12/21 History bisacodyl 10 mg RECTAL DAILY PRN 04/12/21 History buspirone 10 mg PO TID 04/12/21 History cholecalciferol (vitamin D3) 50 mcg PO DAILY 04/12/21 History duloxetine 60 mg PO DAILY 04/12/21 History fluticasone propion-salmeterol 1 inh INHALATION Q12H 04/12/21 History [Advair Diskus] furosemide 40 mg PO DAILY 04/12/21 History gabapentin 100 mg PO DAILY 04/12/21 History gabapentin 300 mg PO DAILY 04/12/21 History guaifenesin 200 mg PO Q4H PRN 04/12/21 History hydrocodone-acetaminophen 1 tablet PO Q6H PRN 04/12/21 04/12/21 History levalbuterol tartrate 1 puff INHALATION Q6H 04/12/21 History magnesium hydroxide [Milk of 30 ml PO DAILY PRN 04/12/21 History Magnesia] metoprolol tartrate 12.5 mg PO DAILY 04/12/21 History
--- NOTE | 2021-04-12 20:25 | ECG_ITS ---
Measurements Intervals [place] Rate: 99 P: SD: 0 QRS: -12 QRSD: 81 T: 67 QT: 365 QTc: 470 Interpretive Statements ATRIAL FIBRILLATION BORDERLINE ST-T WAVE ABNORMALITY- LAT/HIGH LAT LEADS BASELINE ARTIFACT- I, III, AVR, AVF, V1, V3-V4 ABNORMAL ECG Electronically Signed On 04-12-2021 22:09:23 CDT by Finn Gonzalez D.O.
[2021-04-12 21:42] LABS: Hemoglobin A1C 6.7 % (<5.7)
[2021-04-12 21:49] LABS: Hematocrit 38.2 % (37.0-47.0); Hemoglobin 11.5 g/dL (12.0-15.0)
[2021-04-12 22:00] LABS: Magnesium 1.3 mg/dL (1.6-2.3)
[2021-04-12] MEDS: NALOXONE HCL 0.4 MG/ML VIAL IV PUSH (22:32)
[2021-04-12] MEDS: MAGNESIUM SULF 2 GM/WATER 50ML 2 GM/50 ML BAG IVPB (22:33)
--- NOTE | 2021-04-12 23:03 | ADMGEN ---
This patient, Mary George, was admitted to 2 Medical Room 253-01 @1945. Patient/family oriented to hospital policies and general routines including ID bracelet, bed and alarms, visiting hours, pain management, procedures, bathroom and other care routines, personal items, smoking policy, room service/diet, and visiting hours. Information on how to activate the Rapid Response Team has been discussed. Patient/Family are encouraged to report perceived risks to care and to ask questions if they do not understand what they are told or what they should do.
--- NOTE | 2021-04-12 23:17 | WPDURCON ---
Assessment and Plan Assessment and plan (1) Gross hematuria: Code(s): R31.0 - Gross hematuria Status: Acute (2) Acute renal failure: Code(s): N17.9 - Acute kidney failure, unspecified Status: Acute (3) Bladder mass: Code(s): N32.89 - Other specified disorders of bladder Status: Acute Assessment and Plan: 85 yo WF presenting with gross hematuria and CT finding of 5 cm bladder mass with mild hydronephrosis. I had a lengthy discussion with her son Bharat who is her POA and spoke with the hospitalist and pricing specialist as well. Initially had clot retention with gross hematuria and abdominal pain. After hand irrigation, catheter is now draining well. Empirically started on antibiotics. [employer] has seen her and risk assessed her- OK to proceed to OR for TURBT under general anesthetic. Her son/POA and I had a discussion about options. Pt has advanced dementia and is DNR. Her son's goal is to keep her comfortable. He is concerned that the bleeding and clots are the source of her abdominal pain that she had earlier today. He elects to have her proceed to the OR for TURBT. He understands this will be a general anesthetic and with her multiple comorbidities, she is at high risk of complications. We discussed option for bilateral stent placement if this is a tumor obstructing her ureteral orifices. Due to the discomfort that the stents may create, he does NOT want me to place stents and understands that her renal function may worsen/result in . At this time, he wants to proceed with TURBT to try to stop the bleeding but does not want stent placement. He is OK with me performing bilateral retrograde pyelograms if needed for diagnostic purposes only. She is NPO after MN and pricing specialist/hospitalist are working to medically optimize her before surgery. Her O2 sat and BP were low after dose of morphine but have responded to narcan and supplemental O2. Urology Consult Note HPI Date Seen: 04/12/21 Requesting Physician: Abner Green MD Primary Care Provider: Jb Rodriguez MD Consult Narrative Narrative: Mary George is a 85 year old female presenting from her NH with one day history of hematuria. IA sent her to ER unsure if it was gross hematuria or vaginal bleeding. Pt has dementia and is unable to provide any history. I spoke with her son and POA, Bharat, on the phone. He is unaware of her having any prior history of hematuria. He states she was a smoker for yrs but has since quit. Pelvic US and CT in ER show 5 cm bladder mass vs hematoma with mild bilateral hydronephrosis. Pt has multiple medical issues including Afib, CHF, COPD, dementia. Cr in ER was 2.0. Last available Cr was over 6 mos ago and was 1.4-1.5 at that time. No fevers. No dysuria. Her only anticoagulation is a baby aspirin. Review of Systems Review of Systems: ROS unobtainable: Yes unobtainable due to mental status [facility] Past Medical History Medical History (Updated 04/12/21 @ 23:23 by Griselda Bassett MD) Arthritis Chronic kidney disease Baseline creatinine is around 1.30. Chronic obstructive pulmonary disease Cirrhosis of liver Noted on imaging dated 04/12/2021. Coronary artery disease Dementia Depression with anxiety Diastolic congestive heart failure echocardiogram in February 2018 showed mild concentric LVH with sigmoid hypertrophy, and EF of 60 to 65%, moderate biatrial enlargement, mild mitral valve regurgitation, mild aortic valve regurgitation, moderate to severe tricuspid valve regurgitation, moderate pulmonary hypertension with an RSVP of 62 mmHg. Gastroesophageal reflux disease History of cerebrovascular accident (09/2016) Hypertension Paroxysmal atrial fibrillation Not on long-term anticoagulation due to history of recurrent anemia and falls. Uterine cancer Status post hysterectomy therapy. Surgical History Surgical History (Updated 04/12/21 @ 21:07 by Chelsy Canales PA-C) Hist
[2021-04-13] VITALS (21 sets, daily range): BP systolic 98–139; BP diastolic 48–94; PULSE 91–121; RESP 10–22; TEMP 35.7–36.8; O2SAT 91–100; BMI 25.7
[2021-04-13 01:43] LABS: Hematocrit 36.4 % (37.0-47.0); Hemoglobin 11.1 g/dL (12.0-15.0)
[2021-04-13 05:45] LABS: Hematocrit 33.8 % (37.0-47.0); Hemoglobin 10.3 g/dL (12.0-15.0); Mean Corpuscular HGB Conc 30.5 g/dl (32-36); Mean Corpuscular Hemoglobin 30.9 pg (26-34); Mean Corpuscular Volume 101.5 fl (80-100); Mean Platelet Volume 9.5 fl (7.4-10.4); Platelet Count Result 318 k/mm3 (150-375); Red Blood Count 3.33 M/mm3 (4.2-5.4); Red Cell Distribution Width 14.1 % (11.5-14.5)
[2021-04-13 05:56] LABS: Alanine Aminotransferase 7 U/L (4-35); Albumin Level 3.3 g/dL (3.5-5.1); Alkaline Phosphatase 91 U/L (38-126); Anion Gap 9 mmol/L (8-16); Aspartate Amino Transferase 19 U/L (14-36); Bilirubin,Total 0.5 mg/dL (0.2-1.3); Blood Urea Nitrogen 34 mg/dL (7-17); Calcium 8.7 mg/dL (8.4-10.2); Carbon Dioxide 21 mmol/L (22-30); Chloride 105 mmol/L (98-107); Estimated CRCL calculation 19 ml/min; Estimated Glomerular Filt Rate 27; Glucose 153 mg/dL (65-105); Potassium 4.3 mmol/L (3.4-5.0); Sodium 135 mmol/L (137-145)
--- NOTE | 2021-04-13 07:17 | WPDANESEPPF ---
Anes - Initial Pre Proc Eval Procedure: Operation Date: 04/13/21 08:30 Proposed Procedures p Cystoscopy Bladder Biopsy - Griselda Bassett MD Date/Time: 04/13/21 07:17 Surgeon: Zenaida Gilmore PA-C Pre Op Diagnosis: Bladder Mass vs Hematoma, Urinary Obstruction Patient Data Age: 85 Gender: F Height: 1.65 m Weight: 70.1 kg Last Vital Signs Temp 36.8 C 04/13/21 05:57 Pulse 94 04/13/21 05:57 Resp 22 H 04/13/21 05:57 BP 120/79 04/13/21 05:57 Pulse Ox 100 04/13/21 05:57 Allergies Allergy/AdvReac Type Severity Reaction Status Date / Time apixaban AdvReac Unknown Verified 04/13/21 00:13 Home Medications Medication Instructions Recorded Confirmed Type acetaminophen 1,000 mg PO BID 04/12/21 04/13/21 History acetaminophen 650 mg PO Q4-5H PRN 04/12/21 04/13/21 History alum-mag hydroxide-simeth [Maalox 30 ml PO QID PRN 04/12/21 04/13/21 History Advanced] aspirin 81 mg PO DAILY 04/12/21 04/13/21 History bisacodyl 10 mg RECTAL DAILY PRN 04/12/21 04/13/21 History buspirone 10 mg PO TID 04/12/21 04/13/21 History cholecalciferol (vitamin D3) 50 mcg PO DAILY 04/12/21 04/13/21 History duloxetine 60 mg PO DAILY 04/12/21 04/13/21 History fluticasone propion-salmeterol 1 inh INHALATION Q12H 04/12/21 04/13/21 History [Advair Diskus] furosemide 40 mg PO DAILY 04/12/21 04/13/21 History gabapentin 100 mg PO DAILY 04/12/21 04/13/21 History gabapentin 300 mg PO DAILY 04/12/21 04/13/21 History guaifenesin 200 mg PO Q4H PRN 04/12/21 04/13/21 History hydrocodone-acetaminophen 1 tablet PO Q6H PRN 04/12/21 04/13/21 History levalbuterol tartrate 1 puff INHALATION Q6H 04/12/21 04/13/21 History magnesium hydroxide [Milk of 30 ml PO DAILY PRN 04/12/21 04/13/21 History Magnesia] metoprolol tartrate 12.5 mg PO BID 04/12/21 04/13/21 History mirtazapine [Remeron] 7.5 mg PO HS 04/12/21 04/13/21 History hszlwzfw-zytqdioamPh-doyidoirM 1 applic TOPICAL DAILY 04/12/21 04/13/21 History [Triple Antibiotic] nystatin 1 applic TOPICAL TID PRN 04/12/21 04/13/21 History pantoprazole 20 mg PO QAM 04/12/21 04/13/21 History polyethylene glycol 3350 17 g PO PRN PRN 04/12/21 04/13/21 History spironolactone 25 mg PO DAILY 04/12/21 04/13/21 History Laboratory Tests 04/12/21 04/12/21 04/12/21 13:46 13:47 13:47 WBC 13.4 K/mm3 H K/mm3 (4.5-10.0) RBC 4.07 M/mm3 L M/mm3 (4.2-5.4) Hgb 12.4 g/dL g/dL (12.0-15.0) Hct 39.7 % % (37.0-47.0) MCV 97.5 fl fl (80-100) MCH 30.5 pg pg (26-34) MCHC 31.2 g/dl L g/dl (32-36) RDW 14.1 % % (11.5-14.5) Plt Count 401 k/mm3 H k/mm3 (150-375) MPV 9.5 fl fl (7.4-10.4) Immature Gran % (Auto) 0.6 % H % (0-0.5) Neut % (Auto) 80.9 % H % (45.5-73.1) Lymph % (Auto) 7.8 % L % (18.3-44.2) [place] % (Auto) 9.5 % H % (2.6-8.5) Eos % (Auto) 0.9 % % (0-4.4) Baso % (Auto) 0.3 % % (0.2-1.2) Lymph # (Auto) 1.05 K/mm3 K/mm3 (0.9-3.2) [place] # (Auto) 1.3 K/mm3 H K/mm3 (0.1-0.6) Eos # (Auto) 0.1 K/mm3 K/mm3 (0-0.3) Baso # (Auto) 0.0 K/mm3 K/mm3 (0.0-0.1) Abs Immat Gran (auto) 0.08 K/mm3 H K/mm3 (0.00-0.031) Absolute Neuts (auto) 10.9 K/mm3 H K/mm3 (1.3-6.7) Absolute Nucleated RBC 0.0 K/mm3 K/mm3 (0.0-0.012) Nucleated RBC % 0.0 % % (0.0-0.2) PT INR APTT Sodium Potassium Chloride Carbon Dioxide Anion Gap BUN Creatinine Estim Creat Clear Calc Estimated GFR Glucose Hemoglobin A1c Lactic Acid Calcium Magnesium Total Bilirubin Direct Bilirubin AST ALT Alkaline Phosphatase
--- NOTE | 2021-04-13 07:41 | PC.NURSE ---
To OR per bed, IV intact. Report given to MOON Mckeon.
[2021-04-13] MEDS: LACTATED RINGERS 1,000 ML 30 ML IV CONT (07:43)
--- NOTE | 2021-04-13 07:45 | WPDHPUPDATE1 ---
History and Physical Update Update Date/Time: 04/13/21 07:45 History and Physical has been reviewed, including an updated exam of the patient. There are NO changes in the patient's condition. Risks, benefits, and alternatives have been discussed and questions answered. Patient agrees to proceed with procedure.
--- NOTE | 2021-04-13 08:43 | P.OP_ITS ---
Procedure Note - Detailed Date of Procedure 04/13/21 Pre-op Diagnosis Bladder Mass vs Hematoma, Urinary Obstruction Post-op Diagnosis other (gross hematuria, clot obstruction, hemorrhagic cystitis) Procedure Performed cystoscopy with clot evacuation and fulguration and bilateral retrograde pyelograms Surgeon Griselda Bassett MD Business Office Coordinator none Anesthesia MAC (TIVA) Indications 85 yo WF presenting with gross hematuria, bladder mass and mild bilateral hydro. After discussion with her POA, they elected to proceed with cystoscopy, clot evacuation, possible TURBT and bilateral retrograde pyelograms. POA did not want me to place stents Findings diffuse hemorrhagic cystitis with friable mucosa; moderate clot; no tumor; no obstruction on RPGs Description of Procedure Pt was correctly identified and informed consent was obtained from her son/POA. She was brought to the OR and received TIVA. She had already received IV antibiotics and was not due for redosing. She was placed in dorsal lithotomy position with careful attention paid to positioning due to right THR. A rigid cystoscope was inserted through the urethra into the bladder. She was noted to have a moderate amount of clot. I switched to a resectoscope and removed all of the clots. There was no discrete mass but she was noted to have diffuse hemorrhagic cystitis with friable mucosa. Multiple areas on posterior wall of bladder were bleeding and were cauterized with roller ball cautery. After hemostasis was obtained, I intubated the L UO with 5fr angiographic catheter and performed a gentle retrograde pyelogram. There were no obvious filling defects and no obstruction. I then intubated the R UO and again performed a retrograde pyelogram. Once again there were no obvious filling defects and prompt drainage of contrast. The scope was then withdrawn and a 20 fr 3way catheter was placed and she was started on slow drip CBI. Urine was clear. She was awaken and taken to recovery room in a stable fashion. Implants none Estimated Blood Loss 150 (150 cc clot; no significant ongoing bleeding) Drains Yes (20 fr 3-way catheter) Packing No Pathology none sent Complications No immediate complications Condition stable Disposition PACU
[2021-04-13 09:43] LABS: Magnesium 2.1 mg/dL (1.6-2.3)
--- NOTE | 2021-04-13 10:00 | PC.NURSE ---
Returned from OR per bed. Report received from MOON Mason.
--- NOTE | 2021-04-13 11:24 | PM.IMPN ---
Progress Note: A&P Assessment and Plan (1) Blood clot in bladder: Code(s): N32.89 - Other specified disorders of bladder Status: Acute Assessment and Plan: Pt underwent cystoscopy 04/13/21 which found diffuse hemorrhagic cystitis with friable mucosa; moderate clot; no tumor; no obstruction on RPGs - continue CBI until urine is clear, suspect this will improve soon - continue antibiotics, await culture (2) Gross hematuria: Code(s): R31.0 - Gross hematuria Status: Acute Assessment and Plan: Secondary to above - possible UTI associated with this, await culture - continue antibiotics for now (3) Chronic kidney disease: Code(s): N18.9 - Chronic kidney disease, unspecified Status: Acute Assessment and Plan: Patient's baseline creatinine is 1.3 and has improved slightly to 1.8 today -She looks dry on exam but has crackles. For this reason I will stop diuretics at this time and monitor her status closely. Encourage oral hydration and restart diuretics if she appears hypervolemic. consider small dose of fluids if she continues to appear dehydrated and creatinine does not improve (4) Dehydration: Code(s): E86.0 - Dehydration Status: Acute Assessment and Plan: As above (5) Hypertension: Code(s): I10 - Essential (primary) hypertension Status: Acute Assessment and Plan: Last bp 117/75 -diuretics on hold -continue metoprolol (6) Diastolic congestive heart failure: Code(s): I50.30 - Unspecified diastolic (congestive) heart failure Status: Acute Assessment and Plan: Clinically compensated and actually a bit dry on exam -She got IV fluids overnight and now has coarse crackles in the lungs -Stop diuretics, hold on fluids and encourage oral hydration. consider more fluids if she does not improve. (7) Paroxysmal atrial fibrillation: Code(s): I48.0 - Paroxysmal atrial fibrillation Status: Acute Assessment and Plan: Currently rate controlled afib - Not on anticoagulation due to history of recurrent anemia and falls . (8) Cirrhosis of liver: Code(s): K74.60 - Unspecified cirrhosis of liver Status: Acute Assessment and Plan: Noted incidentally on CT today -Family informed, no w/u desired (9) Chronic obstructive pulmonary disease: Code(s): J44.9 - Chronic obstructive pulmonary disease, unspecified Status: Acute Assessment and Plan: No acute exacerbation. Continue maintenance inhalers. (10) Dementia: Code(s): F03.90 - Unspecified dementia without behavioral disturbance Status: Acute Assessment and Plan: Chronic and stable Additional Plan Pt's other medical record number is [id number] and her last labs were 08/2020 Time Spent With Patient Time with patient: 25 - 35 minutes Subjective Date/time seen: 04/13/21 11:24 Interval history: Pt is a 85 y/o female here for bladder clot. Patient was seen today and is doing well. She had the procedure this morning and tolerated it well. She has no complaints currently. Daughter at bedside. She specifically denies chest pain, shortness of breath, fevers, chills, nausea, vomiting, abdominal pain or leg swelling. The patient's family states the patient had a big breakfast yesterday but that is the last thing she has eaten. They were unaware of any history of cirrhosis but no further workup desired. daughter states she occasionally uses oxygen at the [facility] but does not use it daily. she is wheelchair-bound but needs help with transfers. Review of Systems Review of Systems: All systems reviewed & are unremarkable except as noted in HPI and below Exam Narrative: Exam Narrative: General: elderly patient resting comfortably in bed in no acute distress with 1 L of oxygen applied HEENT: normocephalic, dry mucous membranes Neck: supple
[2021-04-13] MEDS: LEVALBUTEROL HFA (*SP) 15 GM INHALER 1 PUFF INHALATION ×3 (12:12→21:29)
[2021-04-13] MEDS: METOPROLOL TARTRATE 12.5 MG TABLET PO ×2 (12:12→21:29)
[2021-04-13] MEDS: busPIRone HCL 10 MG TABLET PO ×3 (12:12→18:02)
[2021-04-13] MEDS: PANTOPRAZOLE SOD SESQUIHYDRATE 20 MG TAB PO (12:12)
[2021-04-13] MEDS: CHOLECALCIFEROL 1,000 UNITS TABLET 2000 UNITS PO (12:12)
[2021-04-13] MEDS: DULoxetine HCL 60 MG CAPSULE.DR PO (12:12)
[2021-04-13] MEDS: NEOMYCIN/POLYMYXIN/BACITRACIN OINTMENT 15 GM TUBE 1 APPLIC TOPICAL (12:14)
[2021-04-13] MEDS: FLUTICASONE/SALMETEROL 115-21 MCG INHALER 1 PUFF 2 PUFF INHALATION ×2 (12:20→21:29)
[2021-04-13] MEDS: GABAPENTIN 400 MG CAPSULE PO (15:55)
--- NOTE | 2021-04-13 17:24 | PM.PNCARD ---
Progress Note: A&P Assessment and Plan (1) Preop cardiovascular exam: Code(s): Z01.810 - Encounter for preprocedural cardiovascular examination Status: Acute Assessment and Plan: Risk profile: Stroke, atrial fibrillation, DM, diastolic dysfunction, COPD. Clinical status: No chest pain or sob. Functional status<4 METs as she cannot ambulate since her stroke. Moderate risk urologic procedures. She is at at least moderate cardiac risk. May proceed to noncardiac urologic procedures without further cardiac workup as this appears to be urgent to prevent sepsis, acute renal failure, active bleeding, from this. Post op day 0. She did well with urologic procedure. Doing well from cardiology standpoint. No chest pain or sob. Will sign off. Please call with any questions. (2) Atrial fibrillation: Code(s): I48.91 - Unspecified atrial fibrillation Status: Acute Assessment and Plan: She is on aspirin only despite a high [id number] score of 7 due to history of hemoccult positive, falls, history of anemia. Rate controlled with Metoprolol. Resume aspirin daily when OK by urology standpoint. (3) Hypertension: Code(s): I10 - Essential (primary) hypertension Status: Acute Assessment and Plan: Stable. (4) Diastolic dysfunction: Code(s): I51.89 - Other ill-defined heart diseases Status: Acute Assessment and Plan: Stable. She appears to be euvolemic while holding Furosemide and Spironolactone. Would hold off for now given acute renal failure and resume if clinical status dictates. (5) Acute renal failure: Code(s): N17.9 - Acute kidney failure, unspecified Status: Acute Subjective Date/time seen: 04/13/21 17:24 Denies chest pain or sob. She reports stomach pain. She is oriented to place knowing she's at [facility], but could not tell me her name or year. Exam Const: General: confusion, ill appearing and uncomfortable Resp: Auscultation: clear to auscultation bilaterally, no crackles, no rales, no rhonchi and no wheezes Cardio: Rate: tachycardic Rhythm: abnormal rhythm Heart sounds: no murmurs Bruits: no carotid bruits Peripheral pulses: dorsalis pedis present GI: GI Palp: Yes abdominal tenderness and Yes Soft to palpation Neuro: General: No oriented to person, oriented to place and No oriented to time Extrem: Right lower extremity: no edema Left lower extremity: no edema Objective Data Vital Signs Vital Signs: Vital Signs - 24 hr 04/12/21 18:49 04/12/21 19:28 04/12/21 21:00 Temperature 97.7 F Pulse Rate 102 H Respiratory Rate 13 Blood Pressure 101/77 Pulse Oximetry 95 77 L 04/12/21 21:10 04/12/21 21:15 04/12/21 21:20 Temperature Pulse Rate Respiratory Rate Blood Pressure Pulse Oximetry 82 L 90 90 04/12/21 21:45 04/12/21 21:50 04/12/21 22:00 Temperature 98.0 F Pulse Rate 98 Respiratory Rate 22 H Blood Pressure 96/53 L Pulse Oximetry 88 L 91 91 04/13/21 01:30 04/13/21 01:42 04/13/21 02:30 Temperature 97.3 F L Pulse Rate 95 Respiratory Rate 20 Blood Pressure 110/60 Pulse Oximetry 96 99 94 04/13/21 05:57 04/13/21 08:47 04/13/21 08:50 Temperature 98.3 F 97.2 F L Pulse Rate 94 104 H 98 Respiratory Rate 22 H 14 12 Blood Pressure 120/79 132/71 107/94 H Pulse Oximetry 100 99 100 04/13/21 09:05 04/13/21 09:20 04/13/21 09:30 Temperature Pulse Rate 93 99 98 Respiratory Rate 14 10 L 11 L Blood Pressure 115/76 98/51 L 117/75 Pulse Oximetry 95 96 93 04/13/21 10:00 04/13/21 10:31 04/13/21 12:12 Temperature Pulse Rate 98 Respiratory Rate Blood Pressure Pulse Oximetry 97 97 Intake/Output Intake/Output: Intake & Output 04/10/21 04/11/21 04/12/21 04/13/21 23:59 23:59 23:59 23:59 Intake Total 600 550 Output Total 3500 Balance 600 -2950 Meds/Results Medications: Active Medications Generic Name Dose Route Start Last Ad
[2021-04-13] MEDS: MIRTAZAPINE 7.5 MG TABLET PO (21:29)
[2021-04-14] VITALS (8 sets, daily range): BP systolic 106–120; BP diastolic 50–99; PULSE 69–103; RESP 16–20; TEMP 36.1–36.5; O2SAT 90–99
--- NOTE | 2021-04-14 | ECHO_ITS ---
Patient Info Name: Mary George Age: 85 years : 1935 Gender: Female Ht: 65 in Wt: 156 lbs BSA: 1.82 m2 HR: 86 bpm BP: 107 / 63 mmHg Technical Quality: Fair Exam Date: 04/14/2021 12:09 PM Exam Location: [facility] Patient Status: Inpatient Admit Date: 04/13/2021 Staff Ordering Physician: Zenaida Gilmore PA-C Director: IGNACIO Attending Provider: Zenaida Gilmore PA-C Referring Physician: Mando WRAY; Exam Type: CA echo doppler color flow Study Info Indications - HYPOXIA R01.1 - Cardiac murmur, unspecified Complete two-dimensional, color flow and Doppler transthoracic echocardiogram is performed. Summary 1. Complete two-dimensional, color flow and Doppler transthoracic echocardiogram is performed. 2. Left ventricular chamber dimension is normal. 3. Left ventricular systolic function is normal, estimated at 60-65%. 4. There is mildly increased left ventricular wall thickness. 5. The left ventricular diastolic function is abnormal. 6. Tissue doppler E/e' is not done. 7. Atrial fibrillation. 8. Left atrial chamber dimension is severely enlarged. 9. Right atrial chamber dimension is mildly enlarged. 10. There is moderate aortic valve sclerosis. 11. There is mild aortic valve stenosis with a peak velocity of 118 cm/s, mean gradient of 2 mmHg, and aortic valve area of 1.5 cm2. 12. There is mild aortic valve regurgitation. 13. The mitral valve has moderately calcified annulus. 14. There is mild mitral valve regurgitation. 15. There is moderate tricuspid valve regurgitation. 16. Moderate pulmonary hypertension, estimated pulmonary arterial systolic pressure is 59 mmHg. 17. There is trace pulmonic regurgitation. 18. Dilated inferior vena cava with >50% collapse upon inspiration consistent with elevated right atrial pressure, 10 mmHg. Left Ventricle Tissue doppler E/e' is not done. Atrial fibrillation. Left ventricular chamber dimension is normal. Left ventricular systolic function is normal, estimated at 60-65%. There is mildly increased left ventricular wall thickness. The left ventricular diastolic function is abnormal. Right Ventricle Right ventricular systolic function is normal based on normal TAPSE 1.7 cm. Right ventricular chamber dimension is not well visualized. Left Atria Left atrial chamber dimension is severely enlarged. Right Atria Right atrial chamber dimension is mildly enlarged. Aortic Valve The aortic valve is trileaflet. There is moderate aortic valve sclerosis. There is mild aortic valve stenosis with a peak velocity of 118 cm/s, mean gradient of 2 mmHg, and aortic valve area of 1.5 cm2. There is mild aortic valve regurgitation. Pulmonic Valve There is trace pulmonic regurgitation. Mitral Valve The mitral valve has moderately calcified annulus. There is no mitral valve stenosis. There is mild mitral valve regurgitation. Tricuspid Valve There is moderate tricuspid valve regurgitation. Moderate pulmonary hypertension, estimated pulmonary arterial systolic pressure is 59 mmHg. Pericardium/Pleural There is no pericardial effusion. Inferior Vena Cava Dilated inferior vena cava with >50% collapse upon inspiration consistent with elevated right atrial pressure, 10 mmHg. Aorta The aortic root size at the sinus of Valsalva is normal. Left Ventricular Outflow Tract Name Value Nor
[2021-04-14] MEDS: LEVALBUTEROL HFA (*SP) 15 GM INHALER 1 PUFF INHALATION ×4 (04:22→20:36)
[2021-04-14 04:35] LABS: Hematocrit 31.8 % (37.0-47.0); Mean Corpuscular HGB Conc 31.4 g/dl (32-36); Mean Corpuscular Hemoglobin 31.2 pg (26-34); Mean Corpuscular Volume 99.1 fl (80-100); Mean Platelet Volume 9.5 fl (7.4-10.4); Platelet Count Result 303 k/mm3 (150-375); Red Blood Count 3.21 M/mm3 (4.2-5.4); Red Cell Distribution Width 14.4 % (11.5-14.5); White Blood Count 9.2 K/mm3 (4.5-10.0)
[2021-04-14 04:43] LABS: Anion Gap 7 mmol/L (8-16); Blood Urea Nitrogen 28 mg/dL (7-17); Calcium 8.9 mg/dL (8.4-10.2); Carbon Dioxide 24 mmol/L (22-30); Chloride 105 mmol/L (98-107); Estimated CRCL calculation 23 ml/min; Estimated Glomerular Filt Rate 33; Glucose 107 mg/dL (65-105); Potassium 4.3 mmol/L (3.4-5.0); Sodium 136 mmol/L (137-145)
--- NOTE | 2021-04-14 06:54 | WPDUROPN2 ---
Progress Note: A&P Assessment and Plan (1) Gross hematuria: Code(s): R31.0 - Gross hematuria Status: Acute (2) Hemorrhagic cystitis: Code(s): N30.91 - Cystitis, unspecified with hematuria Status: Acute Assessment and Plan: Urine culture currently growing E coli. Urine sensitivities pending. Urine has cleared nicely with antibiotic therapy. Would recommend leaving the catheter in 1 more day. Hopefully, by tomorrow we have both blood and urine culture resulting can consider switching to oral antibiotics Subjective Subjective Date/Time Seen: 04/14/21 06:54 Comfortable, urine clear Review of Systems Review of Systems: ROS unobtainable: Yes unobtainable due to mental status Exam Const: General: no acute distress Resp: Effort & Inspection: normal respiratory effort GI: Inspection: non-distended GI Palp: Yes abdominal tenderness (mild s/p tenderness) and No Guarding due to palpation present (GI) Auscultation: normal bowel sounds Objective Data Vital Signs Vital Signs: Vital Signs - 24 hr 04/13/21 08:47 04/13/21 08:50 04/13/21 09:05 Temperature 97.2 F L Pulse Rate 104 H 98 93 Respiratory Rate 14 12 14 Blood Pressure 132/71 107/94 H 115/76 Pulse Oximetry 99 100 95 04/13/21 09:20 04/13/21 09:30 04/13/21 09:55 Temperature 96.7 F L Pulse Rate 99 98 121 H Respiratory Rate 10 L 11 L 16 Blood Pressure 98/51 L 117/75 139/90 Pulse Oximetry 96 93 97 04/13/21 10:00 04/13/21 10:10 04/13/21 10:31 Temperature 96.6 F L Pulse Rate 96 Respiratory Rate 20 Blood Pressure 101/76 Pulse Oximetry 97 97 97 04/13/21 10:40 04/13/21 11:40 04/13/21 12:12 Temperature 96.4 F L 96.8 F L Pulse Rate 91 100 98 Respiratory Rate 16 16 Blood Pressure 137/48 L 98/63 L Pulse Oximetry 98 92 04/13/21 15:40 04/13/21 18:11 04/13/21 21:29 Temperature 96.3 F L Pulse Rate 102 H 102 H Respiratory Rate 20 Blood Pressure 112/80 Pulse Oximetry 91 93 04/13/21 22:00 04/13/21 22:51 Temperature 97.5 F L Pulse Rate 107 H Respiratory Rate 20 Blood Pressure 103/81 Pulse Oximetry 98 98 Intake/Output Intake/Output: Intake & Output 04/11/21 04/12/21 04/13/21 04/14/21 23:59 23:59 23:59 23:59 Intake Total 600 800 Output Total 3500 Balance 600 -2700 Meds/Results Medications: Active Medications Generic Name Dose Route Start Last Admin Trade Name Freq PRN Reason Stop Dose Admin Hydrocodone Bitart/Acetaminophen 1 tab 04/13/21 09:48 Hydrocodone/Acetaminophen (*Crx) 7.5-325 Mg Tablet PO Q6H PRN Pain 4-6 Buspirone HCl 10 mg 04/13/21 09:48 04/13/21 18:02 Buspirone Hcl 10 Mg Tablet PO 10 mg TID MARBIN Administration Duloxetine HCl 60 mg 04/13/21 09:48 04/13/21 12:12 Duloxetine Hcl 60 Mg Capsule.Dr PO 60 mg DAILY MARIBN Administration Furosemide 40 mg 04/13/21 09:48 04/13/21 12:13 Furosemide 40 Mg Tablet PO Not Given DAILY MARBIN Gabapentin 400 mg 04/13/21 09:48 04/13/21 15:55 Gabapentin 400 Mg Capsule PO 400 mg DAILY MARBIN Administration Guaifenesin 200 mg 04/13/21 09:48 Guaifenesin 200 Mg/10 Ml Udc PO Q4H PRN Cough Cefepime HCl 2 gm in 50 mls @ 100 mls/hr 04/13/21 18:00 04/13/21 18:57 Maxipime 2 Gm/D5w 50 Ml IVPB Infused Q24H MARBIN Infusion Vancomycin HCl 1,000 mg in 250 mls @ 250 mls/hr 04/14/21 22:00 Vancomycin 1,000 Mg/D5w 250 Ml IVPB Q48H MARBIN Levalbuterol HCl 1 puff 04/13/21 09:48 04/14/21 04:22 Levalbuterol Hfa (*Sp) 15 Gm Inhaler INHALATION 1 puff Q6HRT MARBIN Administration Metoprolol Tartrate 12.5 mg 04/13/21 09:48 04/13/21 21:29 Metoprolol Tartrate 12.5 Mg Tablet PO 12.5 mg Q12HR MARBIN Administration Miconazole Nitrate 1 applic 04/13/21 09:48 04/13/21 12:14 Miconazole 2% Antifungal Ointment 56 Gm TOPICAL 1 applic TID PRN Administration Rash Mirtazapine 7.5 mg 04/13/21 21:00 04/13/21 21:29 Mirtazapine 7.5 M
[2021-04-14] MEDS: CHOLECALCIFEROL 1,000 UNITS TABLET 2000 UNITS PO (09:32)
[2021-04-14] MEDS: busPIRone HCL 10 MG TABLET PO ×3 (09:32→17:13)
[2021-04-14] MEDS: GABAPENTIN 400 MG CAPSULE PO (09:32)
[2021-04-14] MEDS: DULoxetine HCL 60 MG CAPSULE.DR PO (09:32)
[2021-04-14] MEDS: PANTOPRAZOLE SOD SESQUIHYDRATE 20 MG TAB PO (09:32)
[2021-04-14] MEDS: FLUTICASONE/SALMETEROL 115-21 MCG INHALER 1 PUFF 2 PUFF INHALATION ×2 (09:33→20:37)
[2021-04-14] MEDS: METOPROLOL TARTRATE 12.5 MG TABLET PO ×2 (09:33→20:37)
[2021-04-14] MEDS: NEOMYCIN/POLYMYXIN/BACITRACIN OINTMENT 15 GM TUBE 1 APPLIC TOPICAL (09:39)
--- NOTE | 2021-04-14 09:40 | PM.IMPN ---
Progress Note: A&P Assessment and Plan (1) Blood clot in bladder: Code(s): N32.89 - Other specified disorders of bladder Status: Acute Assessment and Plan: Pt underwent cystoscopy 04/13/21 which found diffuse hemorrhagic cystitis with friable mucosa; moderate clot; no tumor; no obstruction on RPGs - CBI stopped today and will monitor for further bleeding -Urology has recommended continuing catheter one more day and if still clear a voiding trial can be done - continue cefepime since pt has ESBL (2) Gross hematuria: Code(s): R31.0 - Gross hematuria Status: Acute Assessment and Plan: Secondary to above -improving (3) Chronic kidney disease: Code(s): N18.9 - Chronic kidney disease, unspecified Status: Acute Assessment and Plan: Patient's baseline creatinine is 1.3 and has improved to 1.5 today -Looks more euvolemic today. Crackles noted in her lungs but pt looked so dry yesterday, will continue with oral hydration without fluids or lasix for now. -May consider restarting her home diuretics as needed in the next few days (4) Dehydration: Code(s): E86.0 - Dehydration Status: Acute Assessment and Plan: As above (5) Hypertension: Code(s): I10 - Essential (primary) hypertension Status: Acute Assessment and Plan: Last bp 107/63 -diuretics on hold -continue metoprolol (6) Diastolic congestive heart failure: Code(s): I50.30 - Unspecified diastolic (congestive) heart failure Status: Acute Assessment and Plan: Clinically compensated and was dry on admission -She got IV fluids on admission and now has coarse crackles in the lungs -Continue to hold diuretics, hold on fluids and encourage oral hydration. (7) Paroxysmal atrial fibrillation: Code(s): I48.0 - Paroxysmal atrial fibrillation Status: Acute Assessment and Plan: Currently rate controlled afib - Not on anticoagulation due to history of recurrent anemia and falls (8) Cirrhosis of liver: Code(s): K74.60 - Unspecified cirrhosis of liver Status: Acute Assessment and Plan: Noted incidentally on CT -Family informed, no w/u desired (9) Chronic obstructive pulmonary disease: Code(s): J44.9 - Chronic obstructive pulmonary disease, unspecified Status: Acute Assessment and Plan: No acute exacerbation. Continue maintenance inhalers. (10) Dementia: Code(s): F03.90 - Unspecified dementia without behavioral disturbance Status: Acute Assessment and Plan: Chronic and stable (11) Systolic murmur: Code(s): R01.1 - Cardiac murmur, unspecified Status: Acute Assessment and Plan: Noted on exam -I cannot find the echo in her charts but HandP states her last echocardiogram in February 2018 showed mild concentric LVH with sigmoid hypertrophy, and EF of 60 to 65%, moderate biatrial enlargement, mild mitral valve regurgitation, mild aortic valve regurgitation, moderate to severe tricuspid valve regurgitation, moderate pulmonary hypertension with an RSVP of 62 mmHg. -Pt does not walk so unable to tell if she has GALLOWAY but she is having trouble weaning off o2 after her procedure -Will obtain echo to assess her valvular disease although I do not suspect family will want any tx for this. Will discuss with them once echo results are back (12) Hemorrhagic cystitis: Code(s): N30.91 - Cystitis, unspecified with hematuria Status: Acute Assessment and Plan: Urine cx growing ESBL -May need IV abx since it is resistant to all abx except macrobid but his CrCl is low (but improving) for macorbid at this time. Additional Plan CXR noted, no PNA suspected at this time Pt's other medical record number is [id number] and her last labs were 08/2020 Subjective Date/time seen: 04/14/21 09:40 Interval history: Pt is a 85 y/o
--- NOTE | 2021-04-14 10:43 | WPDANESPN ---
Anes - Prog Note Post-Op Date/Time: 04/14/21 10:43 Cardiovascular status: normal Respiratory status: normal Airway patency: baseline Mental status: baseline Post-Op hydration status: normal Vital Signs: Last Vital Signs Temp 36.1 C L 04/14/21 06:00 Pulse 84 04/14/21 09:33 Resp 20 04/14/21 06:00 BP 107/63 04/14/21 06:00 Pulse Ox 99 04/14/21 06:00 Pain Score (VAS): 0/10. Patient resting in bed at time of assessment, appears comfortable. I/O: Intake & Output 04/13/21 04/14/21 04/14/21 23:59 07:59 15:59 Intake Total 250 400 120 Output Total 850 Balance 250 -450 120 Laboratory Tests 04/14/21 04:12 04/14/21 04:12 04/14/21 04/14/21 04:12 04:12 WBC 9.2 RBC 3.21 L Hgb 10.0 L Hct 31.8 L MCV 99.1 MCH 31.2 MCHC 31.4 L RDW 14.4 Plt Count 303 MPV 9.5 Sodium 136 L Potassium 4.3 Chloride 105 Carbon Dioxide 24 Anion Gap 7 L BUN 28 H Creatinine 1.50 H Estim Creat Clear Calc 23 Estimated GFR 33 L Glucose 107 H Calcium 8.9 Microbiology 04/12/21 13:47 Urine Catheterized Urine Culture - Final Escherichia Coli (ESBL) 04/12/21 15:51 Blood Blood Culture - Preliminary Patient Feedback: Patient satisfied with anesthetic care.
[2021-04-14] MEDS: polyethylene glycoL 3350 17 GM POWD.PACK PO (16:00)
[2021-04-14] MEDS: HYDROcodone/acetaminophen (*CRX) 7.5-325 MG TABLET 1 TAB PO (17:50)
[2021-04-14] MEDS: MIRTAZAPINE 7.5 MG TABLET PO (20:37)
[2021-04-15 05:54] LABS: Basophils Percent Auto 0.4 % (0.2-1.2); Eosinophils Absolute Auto 0.3 K/mm3 (0-0.3); Eosinophils Percent Auto 3.1 % (0-4.4); Hematocrit 34.5 % (37.0-47.0); Hemoglobin 10.5 g/dL (12.0-15.0); Immature Granulocyte Absolute 0.07 K/mm3 (0.00-0.031); Immature Granulocyte Percent A 0.8 % (0-0.5); Lymphocytes Absolute Auto 1.38 K/mm3 (0.9-3.2); Lymphocytes Percent Auto 15.4 % (18.3-44.2); Mean Corpuscular HGB Conc 30.4 g/dl (32-36); Mean Corpuscular Hemoglobin 30.6 pg (26-34); Mean Corpuscular Volume 100.6 fl (80-100); Mean Platelet Volume 9.4 fl (7.4-10.4); Monocytes Absolute Auto 1.2 K/mm3 (0.1-0.6); Monocytes Percent Auto 12.9 % (2.6-8.5); Neutrophils Absolute Auto 6.1 K/mm3 (1.3-6.7); Neutrophils Percent Auto 67.4 % (45.5-73.1); Platelet Count Result 304 k/mm3 (150-375); Red Blood Count 3.43 M/mm3 (4.2-5.4); Red Cell Distribution Width 14.5 % (11.5-14.5)
[2021-04-15 06:00] VITALS: BP 112/72; PULSE 84; RESP 18; TEMP 36.3; O2SAT 96
[2021-04-15 06:03] LABS: Anion Gap 8 mmol/L (8-16); Blood Urea Nitrogen 25 mg/dL (7-17); Calcium 9.1 mg/dL (8.4-10.2); Carbon Dioxide 25 mmol/L (22-30); Chloride 104 mmol/L (98-107); Estimated CRCL calculation 29 ml/min; Estimated Glomerular Filt Rate 43; Glucose 105 mg/dL (65-105); Magnesium 0.8 mg/dL (1.6-2.3); Potassium 4.3 mmol/L (3.4-5.0); Sodium 137 mmol/L (137-145)
[2021-04-15] MEDS: MAGNESIUM SULF 4 GM/WATER100ML 4 GM/100 ML BAG IVPB (08:59)
[2021-04-15] MEDS: LEVALBUTEROL HFA (*SP) 15 GM INHALER 1 PUFF INHALATION ×3 (09:00→20:41)
[2021-04-15 09:01] VITALS: PULSE 84
[2021-04-15] MEDS: GABAPENTIN 400 MG CAPSULE PO (09:01)
[2021-04-15] MEDS: FLUTICASONE/SALMETEROL 115-21 MCG INHALER 1 PUFF 2 PUFF INHALATION ×2 (09:01→20:41)
[2021-04-15] MEDS: METOPROLOL TARTRATE 12.5 MG TABLET PO ×2 (09:01→20:41)
[2021-04-15] MEDS: DULoxetine HCL 60 MG CAPSULE.DR PO (09:01)
[2021-04-15] MEDS: busPIRone HCL 10 MG TABLET PO ×3 (09:01→18:11)
[2021-04-15] MEDS: PANTOPRAZOLE SOD SESQUIHYDRATE 20 MG TAB PO (09:01)
[2021-04-15] MEDS: CHOLECALCIFEROL 1,000 UNITS TABLET 2000 UNITS PO (09:02)
[2021-04-15] MEDS: NEOMYCIN/POLYMYXIN/BACITRACIN OINTMENT 15 GM TUBE 1 APPLIC TOPICAL (09:03)
[2021-04-15] MEDS: ACETAMINOPHEN 325 MG TABLET 650 MG PO (13:09)
[2021-04-15 13:38] LABS: Magnesium 3.3 mg/dL (1.6-2.3)
--- NOTE | 2021-04-15 13:56 | PM.IMPN ---
Progress Note: A&P Assessment and Plan (1) Blood clot in bladder: Code(s): N32.89 - Other specified disorders of bladder Status: Acute Assessment and Plan: Patient presented with lower abdominal pain and hematuria. CT demonstrated 5.4cm mass which turned out to be hematoma. Appreciate urology recommendations. She underwent cystoscopy 04/13/21 which found diffuse hemorrhagic cystitis with friable mucosa; moderate clot; no tumor; no obstruction on pyelograms. CBI stopped 04/14 - no further bleeding. Voiding trial today per urology. Urine culture growing multi drug-resistant ESBL E coli - continue cefepime (day 3). (2) Hemorrhagic cystitis: Code(s): N30.91 - Cystitis, unspecified with hematuria Status: Acute Assessment and Plan: See above. Urine culture growing > 100,000 ESBL E coli. Multi drug-resistant. Only oral option is macrobid which is not ideal given her age and poor renal function. Continue IV cefepime (day 3) for 5 days. (3) Gross hematuria: Code(s): R31.0 - Gross hematuria Status: Acute Assessment and Plan: Secondary to above. (4) Chronic kidney disease: Qualifiers: Chronic kidney disease stage 3 subtype: stage 3b (GFR 30-44) Chronic kidney disease stage: stage 3 (moderate) Qualified Code(s): N18.32 - Chronic kidney disease, stage 3b Code(s): N18.9 - Chronic kidney disease, unspecified Status: Acute Assessment and Plan: Patient's baseline creatinine is near 1.3 ; improved to 1.2 today. Home lasix held, will monitor. (5) Hypertension: Qualifiers: Hypertension type: essential hypertension Qualified Code(s): I10 - Essential (primary) hypertension Code(s): I10 - Essential (primary) hypertension Status: Chronic Assessment and Plan: Stable 112/72. Continue metoprolol. Lasix held. Monitor BP and adjust treatment as needed. (6) Diastolic congestive heart failure: Qualifiers: Heart failure chronicity: chronic Qualified Code(s): I50.32 - Chronic diastolic (congestive) heart failure Code(s): I50.30 - Unspecified diastolic (congestive) heart failure Status: Chronic Assessment and Plan: Clinically compensated and was dry on admission She got IV fluids on admission. Crackles on exam. Continue to hold diuretics, hold on fluids and encourage oral hydration. Monitor fluid status closely. (7) Paroxysmal atrial fibrillation: Code(s): I48.0 - Paroxysmal atrial fibrillation Status: Acute Assessment and Plan: Rate controlled on home metoprolol. Not on anticoagulation due to history of recurrent anemia and falls. (8) Cirrhosis of liver: Qualifiers: Hepatic cirrhosis type: unspecified hepatic cirrhosis Ascites presence: without ascites Qualified Code(s): K74.60 - Unspecified cirrhosis of liver Code(s): K74.60 - Unspecified cirrhosis of liver Status: Acute Assessment and Plan: Noted incidentally on CT. Family informed by previous provider, no workup desired. (9) Chronic obstructive pulmonary disease: Qualifiers: COPD type: unspecified COPD Qualified Code(s): J44.9 - Chronic obstructive pulmonary disease, unspecified Code(s): J44.9 - Chronic obstructive pulmonary disease, unspecified Status: Chronic Assessment and Plan: No acute exacerbation. Continue maintenance inhalers. (10) Dementia: Qualifiers: Dementia type: unspecified type Dementia behavioral disturbance: without behavioral disturbance Quali
--- NOTE | 2021-04-15 15:49 | PCSTNOTE ---
Please refer to the Bedside Swallow Evaluation in the EMR. Please note, silent aspiration cannot be ruled out at bedside.
--- NOTE | 2021-04-15 16:32 | WPDUROPN2 ---
Progress Note: A&P Assessment and Plan (1) Gross hematuria: Code(s): R31.0 - Gross hematuria Status: Acute Assessment and Plan: Resolved. Patient will have dobbs removed today and have a voiding trial. If unable to urinate after 6-8 hours, re-place a 14fr catheter. Bladder scan after first void and replace dobbs only if >250cc. (2) UTI (urinary tract infection): Code(s): N39.0 - Urinary tract infection, site not specified Status: Acute Assessment and Plan: Continue IV antibiotics, ok to send home on a week of culture sensitive antibiotics such as Nitrofurantoin 100mg BID x 7 days. Likely the cause of hematuria, as there was no bladder mass seen on Cysto. Subjective Subjective Date/Time Seen: 04/15/21 16:32 POD #2 Cystoscopy with clot evacuation. Urine is clear and draining to gravity, she has been off CBI. Urine culture results show growth of E-Coli ESBL, blood cultures are negative. She is sitting up and eating in bed and denies pain at this time. Review of Systems Cardiovascular: Cardiovascular: Denies chest pain Respiratory: Respiratory: Reports no additional respiratory complaints Gastrointestinal: Gastrointestinal: Denies abdominal pain, Denies nausea and Denies vomiting Genitourinary: Genitourinary: Denies hematuria and Denies flank pain Exam Resp: Effort & Inspection: normal respiratory effort Cardio: Rate: regular rate GI: GI Palp: Yes Soft to palpation and No Tenderness to palpation present (GI) : General: Yes no CVA tenderness Urinary Catheter: Urinary Catheter: patent and draining and urine dark Extrem: General: no edema Objective Data Vital Signs Vital Signs: Vital Signs - 24 hr 04/14/21 20:00 04/14/21 20:37 04/14/21 22:00 Temperature 97.4 F L Pulse Rate 69 69 103 H Respiratory Rate 20 16 Blood Pressure 106/50 L Pulse Oximetry 95 94 04/15/21 06:00 04/15/21 09:01 Temperature 97.4 F L Pulse Rate 84 84 Respiratory Rate 18 Blood Pressure 112/72 Pulse Oximetry 96 Intake/Output Intake/Output: Intake & Output 04/12/21 04/13/21 04/14/21 04/15/21 23:59 23:59 23:59 23:59 Intake Total 600 800 570 370 Output Total 3500 1550 400 Balance 600 -2700 -980 -30 Meds/Results Medications: Active Medications Generic Name Dose Route Start Last Admin Trade Name Freq PRN Reason Stop Dose Admin Acetaminophen 650 mg 04/15/21 12:53 04/15/21 13:09 Acetaminophen 325 Mg Tablet PO 650 mg Q4H PRN Administration Pain rated 6 or less Or Fever Hydrocodone Bitart/Acetaminophen 1 tab 04/15/21 13:00 Hydrocodone/Acetaminophen (*Crx) 7.5-325 Mg Tablet PO Q6H PRN Pain Rated 7-10 Buspirone HCl 10 mg 04/13/21 09:48 04/15/21 13:08 Buspirone Hcl 10 Mg Tablet PO 10 mg TID MARBIN Administration Duloxetine HCl 60 mg 04/13/21 09:48 04/15/21 09:01 Duloxetine Hcl 60 Mg Capsule.Dr PO 60 mg DAILY MARBIN Administration Furosemide 40 mg 04/13/21 09:48 04/13/21 12:13 Furosemide 40 Mg Tablet PO Not Given DAILY MARBIN Gabapentin 400 mg 04/13/21 09:48 04/15/21 09:01 Gabapentin 400 Mg Capsule PO 400 mg DAILY MARBIN Administration Guaifenesin 200 mg 04/13/21 09:48 Guaifenesin 200 Mg/10 Ml Udc PO Q4H PRN Cough Cefepime HCl 2 gm in 50 mls @ 100 mls/hr 04/14/21 18:00 04/14/21 17:45 Maxipime 2 Gm/D5w 50 Ml IVPB Infused Q24H MARBIN Infusion Levalbuterol HCl 1 puff 04/13/21 09:48 04/15/21 13:09 Levalbuterol Hfa (*Sp) 15 Gm Inhaler INHALATION 1 puff Q6HRT MARBIN Administration Metoprolol Tartrate 12.5 mg 04/13/21 09:48 04/15/21 09:01 Metoprolol Tartrate 12.5 Mg Tablet PO 12.5 mg Q12HR MARBIN Administration Miconazole Nitrate 1 applic 04/13/21 09:48 04/13/21 12:14 Miconazole 2% Antifungal Ointment 56 Gm TOPICAL 1 applic TID PRN Administration Rash Mirtazapine 7.5 mg 04/13/21 21:00 04/14/21 20:37 Mirtazapine 7.5 Mg Tablet PO 7.5 mg HS S
[2021-04-15 20:00] VITALS: PULSE 89; RESP 16; O2SAT 94
[2021-04-15 20:41] VITALS: PULSE 74
[2021-04-15] MEDS: MIRTAZAPINE 7.5 MG TABLET PO (20:42)
[2021-04-15 22:00] VITALS: BP 120/64; PULSE 89; RESP 16; TEMP 36.8; O2SAT 94
[2021-04-16 06:00] VITALS: BP 107/60; PULSE 95; RESP 18; TEMP 37.1; O2SAT 96
[2021-04-16 06:02] LABS: Anion Gap 6 mmol/L (8-16); Blood Urea Nitrogen 20 mg/dL (7-17); Carbon Dioxide 26 mmol/L (22-30); Chloride 106 mmol/L (98-107); Estimated CRCL calculation 37 ml/min; Estimated Glomerular Filt Rate 60; Glucose 98 mg/dL (65-105); Magnesium 2.6 mg/dL (1.6-2.3); Potassium 4.5 mmol/L (3.4-5.0); Sodium 138 mmol/L (137-145)
[2021-04-16] MEDS: LEVALBUTEROL HFA (*SP) 15 GM INHALER 1 PUFF INHALATION ×2 (09:12→13:18)
[2021-04-16] MEDS: FLUTICASONE/SALMETEROL 115-21 MCG INHALER 1 PUFF 2 PUFF INHALATION (09:12)
[2021-04-16 09:13] VITALS: PULSE 95
[2021-04-16] MEDS: GABAPENTIN 400 MG CAPSULE PO (09:13)
[2021-04-16] MEDS: CHOLECALCIFEROL 1,000 UNITS TABLET 2000 UNITS PO (09:13)
[2021-04-16] MEDS: DULoxetine HCL 60 MG CAPSULE.DR PO (09:13)
[2021-04-16] MEDS: PANTOPRAZOLE SOD SESQUIHYDRATE 20 MG TAB PO (09:13)
[2021-04-16] MEDS: busPIRone HCL 10 MG TABLET PO ×2 (09:13→13:18)
[2021-04-16] MEDS: METOPROLOL TARTRATE 12.5 MG TABLET PO (09:13)
[2021-04-16] MEDS: ACETAMINOPHEN 325 MG TABLET 650 MG PO (09:14)
[2021-04-16] MEDS: NEOMYCIN/POLYMYXIN/BACITRACIN OINTMENT 15 GM TUBE 1 APPLIC TOPICAL (09:16)
--- NOTE | 2021-04-16 11:41 | WPDUROPN2 ---
Progress Note: A&P Assessment and Plan (1) UTI (urinary tract infection): Code(s): N39.0 - Urinary tract infection, site not specified Status: Acute Assessment and Plan: Continue IV antibiotics, ok to send home on Nitrofuratnoin PO. No further evaluation needed. (2) Bladder mass: Code(s): N32.89 - Other specified disorders of bladder Status: Acute Assessment and Plan: No bladder mass seen on Cysto. (3) Gross hematuria: Code(s): R31.0 - Gross hematuria Status: Acute Assessment and Plan: Secondary to infection, resolved, a minimal amount of urethral meatus bleeding noted after dobbs removal. Likely just catheter irritation, will watch, should resolve on it's own. Subjective Subjective Date/Time Seen: 04/16/21 11:41 POD #3 Cystoscopy with clot evacuation. Urine is clear and draining to gravity, she has been off CBI. Urine culture results show growth of E-Coli ESBL, blood cultures are negative. She is sitting up and eating in bed and denies pain at this time, she is confused however. She had her dobbs removed yesterday and is incontinent of urine, bladder scan PVR was 0cc. She does have some minimal urethral meatus bleeding from catheter removal, but not significant, no clots in the urine and urine is not bloody. Review of Systems Review of Systems: ROS unobtainable: Yes unobtainable due to mental status Exam Resp: Effort & Inspection: normal respiratory effort Cardio: Rate: regular rate GI: GI Palp: Yes Soft to palpation and No Tenderness to palpation present (GI) : General: Yes no CVA tenderness External Female Exam: urethral discharge (bloody) Extrem: General: no edema Objective Data Vital Signs Vital Signs: Vital Signs - 24 hr 04/15/21 20:00 04/15/21 20:41 04/15/21 22:00 Temperature 98.3 F Pulse Rate 89 74 89 Respiratory Rate 16 16 Blood Pressure 120/64 Pulse Oximetry 94 94 04/16/21 06:00 04/16/21 09:13 Temperature 98.7 F Pulse Rate 95 95 Respiratory Rate 18 Blood Pressure 107/60 Pulse Oximetry 96 Intake/Output Intake/Output: Intake & Output 04/13/21 04/14/21 04/15/21 04/16/21 23:59 23:59 23:59 23:59 Intake Total 629 060 7448 160 Output Total 4689 1550 1240 [facility] -2700 -980 -120 160 Meds/Results Medications: Active Medications Generic Name Dose Route Start Last Admin Trade Name Freq PRN Reason Stop Dose Admin Acetaminophen 650 mg 04/15/21 12:53 04/16/21 09:14 Acetaminophen 325 Mg Tablet PO 650 mg Q4H PRN Administration Pain rated 6 or less Or Fever Hydrocodone Bitart/Acetaminophen 1 tab 04/15/21 13:00 Hydrocodone/Acetaminophen (*Crx) 7.5-325 Mg Tablet PO Q6H PRN Pain Rated 7-10 Buspirone HCl 10 mg 04/13/21 09:48 04/16/21 09:13 Buspirone Hcl 10 Mg Tablet PO 10 mg TID MARBIN Administration Duloxetine HCl 60 mg 04/13/21 09:48 04/16/21 09:13 Duloxetine Hcl 60 Mg Capsule.Dr PO 60 mg DAILY MARBIN Administration Furosemide 40 mg 04/13/21 09:48 04/13/21 12:13 Furosemide 40 Mg Tablet PO Not Given DAILY MARBIN Gabapentin 400 mg 04/13/21 09:48 04/16/21 09:13 Gabapentin 400 Mg Capsule PO 400 mg DAILY MARBIN Administration Guaifenesin 200 mg 04/13/21 09:48 Guaifenesin 200 Mg/10 Ml Udc PO Q4H PRN Cough Cefepime HCl 2 gm in 50 mls @ 100 mls/hr 04/14/21 18:00 04/15/21 18:43 Maxipime 2 Gm/D5w 50 Ml IVPB Infused Q24H MARBIN Infusion Levalbuterol HCl 1 puff 04/13/21 09:48 04/16/21 09:12 Levalbuterol Hfa (*Sp) 15 Gm Inhaler INHALATION 1 puff Q6HRT MARBIN Administration Metoprolol Tartrate 12.5 mg 04/13/21 09:48 04/16/21 09:13 Metoprolol Tartrate 12.5 Mg Tablet PO 12.5 mg Q12HR MARBIN Administration Miconazole Nitrate 1 applic 04/13/21 09:48 04/13/21 12:14 Miconazole 2% Antifungal Ointment 56 Gm TOPICAL 1 applic TID PRN Administration Rash Mirtazapine 7.5 mg 04/13/21 21:00 04/15/21 20:42
--- NOTE | 2021-04-16 14:39 | PM.DS ---
DS: Admitting Diagnosis Admitting Diagnosis Admitting Diagnosis: Blood clot in bladder, UTI DS: Discharge Diagnosis Discharge Diagnosis (1) Blood clot in bladder: Code(s): N32.89 - Other specified disorders of bladder Status: Acute Assessment and Plan: Date of Admission 04/12/21 Date of Discharge 04/16/21 Ms. George is an 85yo F with dementia, A fib, CHF, hypertension, CKD, who presented to the ED for evaluation of lower abdominal pain and hematuria. CT abd/pel demonstrated 5.4cm mass which turned out to be hematoma. She was evaluated by urology, Dr Bassett and Dr Auguste. She underwent cystoscopy 04/13/21 which revealed diffuse hemorrhagic cystitis with friable mucosa; moderate clot; no tumor; no obstruction on pyelograms. CBI stopped 04/14 and urine cleared. Modi was removed and she passed voiding trial. She then had some urethral bleeding day of discharge - suspected trauma from Modi catheter and should be self-limiting. Urine culture growing multi drug-resistant ESBL E coli. She received 4 days of IV cefepime and will discharge with oral macrobid per urology recommendations. She is hemodynamically stable for discharge back to [facility] where she resides as a halfway resident. (2) Hemorrhagic cystitis: Code(s): N30.91 - Cystitis, unspecified with hematuria Status: Acute Assessment and Plan: See above. Urine culture growing > 100,000 ESBL E coli. Multi drug-resistant. See above. (3) Gross hematuria: Code(s): R31.0 - Gross hematuria Status: Acute Assessment and Plan: Secondary to above. (4) Chronic kidney disease: Qualifiers: Chronic kidney disease stage: stage 3 (moderate) Chronic kidney disease stage 3 subtype: stage 3b (GFR 30-44) Qualified Code(s): N18.32 - Chronic kidney disease, stage 3b Code(s): N18.9 - Chronic kidney disease, unspecified Status: Acute Assessment and Plan: Patient's renal function back at baseline day of discharge. (5) Hypertension: Qualifiers: Hypertension type: essential hypertension Qualified Code(s): I10 - Essential (primary) hypertension Code(s): I10 - Essential (primary) hypertension Status: Chronic Assessment and Plan: Stable maintained on her home metoprolol. (6) Diastolic congestive heart failure: Qualifiers: Heart failure chronicity: chronic Qualified Code(s): I50.32 - Chronic diastolic (congestive) heart failure Code(s): I50.30 - Unspecified diastolic (congestive) heart failure Status: Chronic Assessment and Plan: Euvolemic day of discharge. (7) Paroxysmal atrial fibrillation: Code(s): I48.0 - Paroxysmal atrial fibrillation Status: Acute Assessment and Plan: Rate controlled on home metoprolol. Not on anticoagulation due to history of recurrent anemia and falls. (8) Cirrhosis of liver: Qualifiers: Hepatic cirrhosis type: unspecified hepatic cirrhosis Ascites presence: without ascites Qualified Code(s): K74.60 - Unspecified cirrhosis of liver Code(s): K74.60 - Unspecified cirrhosis of liver Status: Acute Assessment and Plan: Noted incidentally on CT. Family informed by previous provider, no workup desired. (9) Chronic obstructive pulmonary disease: Qualifiers: COPD type: unspecified COPD Qualified Code(s): J44.9 - Chronic obstructive pulmonary disease, unspecified Code(s): J44.9 - Chronic obstructive pulmonary disease, unspecified Status: Chronic Assessment and Plan: No acute exacerbation. Continue
== END 2021-04-16 17:36 | DRG 663 ==
LOC: ANHED 17:38 → ANH2MED 18:58
PROVIDERS: Physician Assistant; Urology; Admitting Provider Family Medicine; Emergency Provider Emergency Medicine; PCP Family Medicine; Visit Provider Internal Medicine
PROC: 0TBB8ZX Excision of Bladder, Via Natural or Artificial Opening Endoscopic, Diagnostic (ICD-10-PCS; CPT 52204; principal; 2021-04-13 08:30)
DX: N30.01 Acute cystitis with hematuria (principal); Z16.24 Resistance to multiple antibiotics; I13.0 Hypertensive heart and chronic kidney disease with heart failure and stage 1 through stage 4 chronic kidney disease, or unspecified chronic kidney disease; I50.32 Chronic diastolic (congestive) heart failure; I48.20 Chronic atrial fibrillation, unspecified; N17.9 Acute kidney failure, unspecified; I69.354 Hemiplegia and hemiparesis following cerebral infarction affecting left non-dominant side; N13.30 Unspecified hydronephrosis; S37.39XA Other injury of urethra, initial encounter; X58.XXXA Exposure to other specified factors, initial encounter; N32.89 Other specified disorders of bladder; B96.20 Unspecified Escherichia coli [E. coli] as the cause of diseases classified elsewhere; N18.32 Chronic kidney disease, stage 3b; I48.0 Paroxysmal atrial fibrillation; K74.60 Unspecified cirrhosis of liver; K21.9 Gastro-esophageal reflux disease without esophagitis; J44.9 Chronic obstructive pulmonary disease, unspecified; F03.90 Unspecified dementia, unspecified severity, without behavioral disturbance, psychotic disturbance, mood disturbance, and anxiety; R01.1 Cardiac murmur, unspecified; I25.10 Atherosclerotic heart disease of native coronary artery without angina pectoris; Z66 Do not resuscitate; E86.0 Dehydration; M19.90 Unspecified osteoarthritis, unspecified site; F41.8 Other specified anxiety disorders; Z85.42 Personal history of malignant neoplasm of other parts of uterus; Z90.710 Acquired absence of both cervix and uterus; Z98.42 Cataract extraction status, left eye; Z98.41 Cataract extraction status, right eye; Z90.49 Acquired absence of other specified parts of digestive tract; Z87.891 Personal history of nicotine dependence
CPT/HCPCS: 36415; 51701; 71045; 74176; 74420; 76856; 80048; 80053; 80076; 81001; 83036; 83605; 83735; 85014; 85018; 85025; 85027; 85610; 85730; 86850; 86900; 86901; 87040; 87077; 87086; 87088; 87186; 92610; 93005; 93306; 96361; 96365; 96367; 96375; 96376; 99285; A9270; C1887; G0378; J0692; J2270; J2310; J2405; J2543; J2704; J3010; J3370; J3475; J7030; J7040; J7120; Q9966

== ENCOUNTER 2021-06-03 10:33 | Emergency (ER) | payer MEDICARE, BC, SELFPAY ==
[2021-06-03] VITALS (59 sets, daily range): BP systolic 34–114; BP diastolic 16–97; PULSE 56–133; RESP 8–27; TEMP 36.1; O2SAT 23–99
--- NOTE | 2021-06-03 11:07 | ECG_ITS ---
Measurements Intervals [place] Rate: 117 P: DE: 0 QRS: 9 QRSD: 86 T: 89 QT: 315 QTc: 441 Interpretive Statements ATRIAL FIBRILLATION WITH RAPID VENTRICULAR RESPONSE LOW QRS VOLTAGE IN LIMB LEADS BORDERLINE ST-T WAVE ABNORMALITY- ANT/HIGH LAT LEADS BASELINE ARTIFACT- I, II, III, AVL, AVF, V1-V2 ABNORMAL ECG Electronically Signed On 06-03-2021 12:18:49 CDT by Finn Gonzalez D.O.
--- NOTE | 2021-06-03 11:10 | ED.AMS ---
HPI - Altered Mental Status General Chief Complaint: Abdominal Pain Stated Complaint: ABD Pain Time Seen by Provider: 06/03/21 10:44 History of Present Illness HPI narrative: 85 yo female w/ h/o cassandra brought in by EMS from retirement for abdominal pain. She reportedly started c/o abdominal pain over night last night. Arrives here now hypotensive, mottled, and not providing any significant history. On review of the chart she was recently here with multi-drug resistant E. coli infection. Related Data Home Medications Medication Instructions Recorded Confirmed acetaminophen 1,000 mg PO BID 08/18/20 08/18/20 acetaminophen 650 mg PO Q4H PRN 08/18/20 08/18/20 alum-mag hydroxide-simeth [Maalox 30 ml PO QID PRN 08/18/20 08/18/20 Advanced] aspirin 81 mg PO DAILY 08/18/20 08/18/20 bisacodyl 10 mg DE DAILY PRN 08/18/20 08/18/20 buspirone 10 mg PO TID 08/18/20 08/18/20 duloxetine 60 mg PO DAILY 08/18/20 08/18/20 fluticasone propion-salmeterol 1 inh INHALATION BID 08/18/20 08/18/20 fluticasone propionate 2 spray INTRANASAL DAILY PRN 08/18/20 08/18/20 furosemide 40 mg PO DAILY 08/18/20 08/18/20 gabapentin 100 mg PO BID 08/18/20 08/18/20 guaifenesin 200 mg PO QID PRN 08/18/20 08/18/20 levalbuterol HCl 1.25 mg INHALATION QID PRN 08/18/20 08/18/20 levalbuterol tartrate 1 puff INHALATION QID PRN 08/18/20 08/18/20 magnesium hydroxide [Milk of 30 ml PO Q3D PRN 08/18/20 08/18/20 Magnesia] metoprolol tartrate 12.5 mg PO BID 08/18/20 08/18/20 mirtazapine 7.5 mg PO HS 08/18/20 08/19/20 pantoprazole 20 mg PO DAILY 08/18/20 08/18/20 polyethylene glycol 3350 [Miralax] 17 g PO DAILY PRN 08/18/20 08/18/20 spironolactone 25 mg PO DAILY 08/18/20 08/18/20 Triple Antibiotic 1 applic TOPICAL DAILY 04/12/21 04/13/21 alum-mag hydroxide-simeth [Maalox 30 ml PO QID PRN 04/12/21 04/13/21 Advanced] aspirin 81 mg PO DAILY 04/12/21 04/13/21 bisacodyl 10 mg RECTAL DAILY PRN 04/12/21 04/13/21 buspirone 10 mg PO TID 04/12/21 04/13/21 cholecalciferol (vitamin D3) 50 mcg PO DAILY 04/12/21 04/13/21 duloxetine 60 mg PO DAILY 04/12/21 04/13/21 fluticasone propion-salmeterol 1 inh INHALATION Q12H 04/12/21 04/13/21 [Advair Diskus] furosemide 40 mg PO DAILY 04/12/21 04/13/21 gabapentin 100 mg PO DAILY 04/12/21 04/13/21 gabapentin 300 mg PO DAILY 04/12/21 04/13/21 guaifenesin 200 mg PO Q4H PRN 04/12/21 04/13/21 levalbuterol tartrate 1 puff INHALATION Q6H 04/12/21 04/13/21 magnesium hydroxide [Milk of 30 ml PO DAILY PRN 04/12/21 04/13/21 Magnesia] metoprolol tartrate 12.5 mg PO BID 04/12/21 04/13/21 mirtazapine [Remeron] 7.5 mg PO HS 04/12/21 04/13/21 nystatin 1 applic TOPICAL TID PRN 04/12/21 04/13/21 pantoprazole 20 mg PO QAM 04/12/21 04/13/21 polyethylene glycol 3350 17 g PO PRN PRN 04/12/21 04/13/21 spironolactone 25 mg PO DAILY 04/12/21 04/13/21 Allergies Allergy/AdvReac Type Severity Reaction Status Date / Time apixaban AdvReac Unknown Verified 06/03/21 11:31 Review of Systems Review of Systems: ROS unobtainable: Yes unobtainable due to mental status PMFSH Past Medical History Medical History Arthritis Atrial fibrillation No longer on anticoagulation due to recurrent anemia CHF (congestive heart failure) Chronic kidney disease Baseline creatinine is around 1.30. Chronic obstructive pulmonary disease Cirrhosis of liver Noted on imaging dated 04/12/2021. COPD (chronic obstructive pulmonary disease) With intermittent oxygen requirement Coronary artery disease Coronary artery disease CVA (cerebral vascular accident) September 2016 Dementia Depression with anxiety Depression with anxiety Diabetes mellitus Diet controlled Diastolic CHF Echocardiogram February 2018: Mild concentric left ventricular hypertrophy with sigmoid hypertrophy, EF 60 dizzy 5%, moderate enlargement of left atrium, moderate biatrial enlargement, mild mitral valve regurgitation, mild aortic valve regurgitation, moderate p
--- NOTE | 2021-06-03 11:39 | PC.NURSE ---
1139-pt not breathing on her own. rescue breathing per ambu bag by dr. moore. ed resp paged to bring bipap trudy to room 11
[2021-06-03 11:42] LABS: INR 1.8; Prothrombin Time 20.4 Seconds (11.1-14.7)
[2021-06-03 11:42] LABS: Fractional Inspired Oxygen 100 %; PCO2 VBG 46.3 mmHg (42.0-48.0)
[2021-06-03 11:43] LABS: Partial Thromboplastin Time 33.9 SECONDS (22.3-36.8)
--- NOTE | 2021-06-03 11:43 | PC.NURSE ---
ed resp therapy present to start bipap for comfort measures. pt has do not intubate directive. son present in room and agrees to current plan.
[2021-06-03 11:46] LABS: pH VBG 7.033 (7.300-7.400)
[2021-06-03 11:47] LABS: Device NON-REBREATHER MASK; PO2 VBG 23.5 mmHg (35.0-45.0)
--- NOTE | 2021-06-03 11:48 | PC.NURSE ---
1 amp sodium bicarb iv
[2021-06-03] MEDS: SODIUM BICARBONATE 8.4% 50 MEQ/50 ML SYRINGE IV PUSH (11:49)
--- NOTE | 2021-06-03 11:55 | ECG_ITS ---
Measurements Intervals [place] Rate: 125 P: [place]: 0 QRS: -4 QRSD: 85 T: 71 QT: 324 QTc: 468 Interpretive Statements ATRIAL FIBRILLATION WITH RAPID VENTRICULAR RESPONSE DELAYED PRECORDIAL R/S TRANSITION LOW QRS VOLTAGE IN LIMB LEADS BORDERLINE ST-T WAVE ABNORMALITY- ANT/HIGH LAT LEADS BASELINE ARTIFACT- I, II, AVR, AVL, V1-V2, V6 ABNORMAL ECG Electronically Signed On 06-03-2021 12:14:40 CDT by Finn Gonzalez D.O.
--- NOTE | 2021-06-03 12:07 | PC.NURSE ---
Mental status decline noted, fluids stopped, see notes.
--- NOTE | 2021-06-03 12:07 | PC.NURSE ---
Assumed pt care at this time from RN adore, bedside. EDP Telma at bedside. Pt on bipap, per edp - pt dnr, per edp pt to come off bipap after family members have arrived.
--- NOTE | 2021-06-03 12:10 | PC.NURSE ---
Verbal order from EDP for teresa for 1mg ativan ivp stat for pt comfort.
[2021-06-03 12:11] LABS: Basophils Absolute Auto 0.1 K/mm3 (0.0-0.1); Basophils Percent Auto 0.4 % (0.2-1.2); Eosinophils Percent Auto 0.1 % (0-4.4); Hematocrit 38.9 % (37.0-47.0); Hemoglobin 10.7 g/dL (12.0-15.0); Immature Granulocyte Absolute 0.57 K/mm3 (0.00-0.031); Immature Granulocyte Percent A 2.4 % (0-0.5); Lymphocytes Absolute Auto 0.64 K/mm3 (0.9-3.2); Lymphocytes Percent Auto 2.7 % (18.3-44.2); Mean Corpuscular HGB Conc 27.5 g/dl (32-36); Mean Corpuscular Hemoglobin 27.2 pg (26-34); Mean Platelet Volume 9.5 fl (7.4-10.4); Monocytes Absolute Auto 2.8 K/mm3 (0.1-0.6); Monocytes Percent Auto 11.7 % (2.6-8.5); Neutrophils Percent Auto 82.7 % (45.5-73.1); Nucleated Red Blood Cells Absolute Auto 0.5 K/mm3 (0.0-0.012); Nucleated Red Blood Cells Perc 2.2 % (0.0-0.2); Platelet Count Result 424 k/mm3 (150-375); Red Blood Count 3.93 M/mm3 (4.2-5.4); Red Cell Distribution Width 15.7 % (11.5-14.5); White Blood Count 24.1 K/mm3 (4.5-10.0)
[2021-06-03] MEDS: LORazepam INJ (*CRX) 2 MG/ML VIAL 1 MG IV PUSH ×2 (12:16→15:12)
--- NOTE | 2021-06-03 12:19 | PC.NURSE ---
Unable to complete [place]umb[place] scale due to pt alertx0.
--- NOTE | 2021-06-03 12:24 | PC.NURSE ---
Unable to get appropriate reading on pt o2 saturation. edp aware, no new orders, vbg resulted.
--- NOTE | 2021-06-03 12:24 | PC.NURSE ---
Pastoral care Sukhjinder with family, awaiting sister's arrival to bedside.
[2021-06-03 12:40] LABS: Anisocytosis 2+ (NORMAL); Hypochromasia 1+ (NORMAL); Platelet Estimate Increased (Adequate)
[2021-06-03 12:40] LABS: Lipase 220 U/L (23-300)
[2021-06-03 12:41] LABS: Target Cells 1+ (NORMAL)
--- NOTE | 2021-06-03 12:49 | PC.NURSE ---
Family has arrived at bedside, edp teresa at bedside discussing pt care and results.
[2021-06-03 13:00] LABS: Lactic Acid Reflex 10.5 mmol/L (0.7-2.1)
--- NOTE | 2021-06-03 13:10 | PC.NURSE ---
superintendent plant protection at bedside.
--- NOTE | 2021-06-03 14:10 | PC.NURSE ---
provider at bedside for medication and removing of bipap.
[2021-06-03] MEDS: LORazepam INJ (*CRX) 2 MG/ML VIAL IV PUSH (14:11)
[2021-06-03] MEDS: MORPHINE SULFATE (*CRX) 4 MG/ML INJ IV PUSH (14:11)
--- NOTE | 2021-06-03 14:13 | PC.NURSE ---
Pt medicated per mar at htis time, edp at bedside with family, plan of care discussed, family has decided it best to remove bipap at this time. EDP has removed bipap.
--- NOTE | 2021-06-03 14:16 | PC.NURSE ---
lab has rejected pt cmp per labor and employment paralegal, verbal order not to draw new specimen from edp at this time.
[2021-06-03 14:28] LABS: Reflex Lactic Acid Yes or No Add Lactic
[2021-06-03] MEDS: MORPHINE SULFATE (*CRX) 2 MG/ML INJ IV PUSH (15:12)
--- NOTE | 2021-06-03 15:15 | PC.NURSE ---
Unable to obtain o2 saturation, edp informed.
--- NOTE | 2021-06-03 18:08 | PC.NURSE ---
Pt noted to be bradycardiac and has become apnic, nathan ahmadi called to bedside, doppler used at bedside, Son-POA at bedside. TOD called at 1808 by nathan Ahmadi.
--- NOTE | 2021-06-03 18:20 | PC.NURSE ---
Addendum entered by Natasha Carvajal RN 06/03/21 18:56: To call back when Dr. Rodriguez calls to sign certificate. Original Note: Spoke with Juanita from family support worker office, notified of and home request of [facility] home, body released at this time.
--- NOTE | 2021-06-03 18:29 | PC.NURSE ---
Pt released by PEDRO LUIS Mcdermott at this time.
--- NOTE | 2021-06-03 18:43 | PC.NURSE ---
Son TODD has left at this time, he has in his posession pt silver cross necklace and red shirt.
--- NOTE | 2021-06-03 18:55 | PC.NURSE ---
Gladys Haynes contacted at this time to inform of pt expiration.
--- NOTE | 2021-06-03 18:57 | PM.IMHP ---
H&P: HPI History of Present Illness Date/Time: 06/03/21 18:57 Chief Complaint: Abdominal pain Narrative: Patient is an 85-year-old lady with atrial fibrillation congestive heart failure chronic kidney disease COPD and dementia presenting with abdominal pain. Patient is alert and oriented times 0 at the time of interview, and not able to answer any questions, not even responsive to pain. Patient's power of litigation attorney associate is at bedside, and says he has discussed at length with other people in patient's life, and have agreed that there are to be only comfort measures. He is aware that this means that this patient will immediately , as her blood pressure is extremely low, and she is most likely going to hypoperfused vital organs. He says that he is aware of this and has come to terms with the fact that his mother will pass away within a few hours most likely. He advised medical team to only give patient medications to make her comfortable, including pain medications such as morphine, and agitation medications such as Ativan. Review of Systems Review of Systems: Not able to obtain any meaningful review of systems. [facility] Past Medical History Medical History Arthritis Atrial fibrillation No longer on anticoagulation due to recurrent anemia CHF (congestive heart failure) Chronic kidney disease Baseline creatinine is around 1.30. Chronic obstructive pulmonary disease Cirrhosis of liver Noted on imaging dated 04/12/2021. COPD (chronic obstructive pulmonary disease) With intermittent oxygen requirement Coronary artery disease Coronary artery disease CVA (cerebral vascular accident) September 2016 Dementia Depression with anxiety Depression with anxiety Diabetes mellitus Diet controlled Diastolic CHF Echocardiogram February 2018: Mild concentric left ventricular hypertrophy with sigmoid hypertrophy, EF 60 dizzy 5%, moderate enlargement of left atrium, moderate biatrial enlargement, mild mitral valve regurgitation, mild aortic valve regurgitation, moderate pulmonary hypertension with RVSP of 62, moderate to severe tricuspid valve regurgitation, dilated IVC without respiratory collapse consistent with elevated right atrial pressures Diastolic congestive heart failure echocardiogram in February 2018 showed mild concentric LVH with sigmoid hypertrophy, and EF of 60 to 65%, moderate biatrial enlargement, mild mitral valve regurgitation, mild aortic valve regurgitation, moderate to severe tricuspid valve regurgitation, moderate pulmonary hypertension with an RSVP of 62 mmHg. Gastroesophageal reflux disease History of cerebrovascular accident (09/2016) Hypertension Hypertension Paroxysmal atrial fibrillation Not on long-term anticoagulation due to history of recurrent anemia and falls. Uterine cancer Status post hysterectomy therapy. Uterine cancer Hysterectomy and radiation therapy Surgical History Surgical History History of appendectomy History of appendectomy History of bilateral cataract extraction History of bilateral cataract extraction History of cholecystectomy History of hip replacement, total Due to fracture History of hysterectomy for malignancy (1998) History of hysterectomy for malignancy 1998 History of umbilical hernia repair History of umbilical hernia repair Hx of cholecystectomy Family History Family History Mother Dementia Father Cerebrovascular accident Hypertension Acute myocardial infarction Mother Dementia Father Cerebrovascular accident Myocardial infarct Hypertension Sibling Diabetes mellitus Uterine cancer Son Crohn's disease Father Family history of premature coronary heart disease, Onset Age: 67 Patient's father is Mother Family history of Alzheimer's disease Social History Social History (
--- NOTE | 2021-06-03 18:58 | PC.NURSE ---
[facility] [employer] contacted to inform that dr. ahmadi has talked with dr. Rodriguez at this time and he has agreed to sign certificate.
== END 2021-06-03 19:13 | disposition expired ==
PROVIDERS: Emergency Provider Emergency Medicine; PCP Family Medicine
DX: E87.2 Acidosis (principal); I48.19 Other persistent atrial fibrillation; I13.0 Hypertensive heart and chronic kidney disease with heart failure and stage 1 through stage 4 chronic kidney disease, or unspecified chronic kidney disease; E11.22 Type 2 diabetes mellitus with diabetic chronic kidney disease; N18.32 Chronic kidney disease, stage 3b; I50.30 Unspecified diastolic (congestive) heart failure; N30.91 Cystitis, unspecified with hematuria; J44.9 Chronic obstructive pulmonary disease, unspecified; I25.10 Atherosclerotic heart disease of native coronary artery without angina pectoris; M19.90 Unspecified osteoarthritis, unspecified site; Z86.73 Personal history of transient ischemic attack (TIA), and cerebral infarction without residual deficits; Z85.42 Personal history of malignant neoplasm of other parts of uterus; K21.9 Gastro-esophageal reflux disease without esophagitis; Z98.42 Cataract extraction status, left eye; Z98.41 Cataract extraction status, right eye; Z96.649 Presence of unspecified artificial hip joint; Z66 Do not resuscitate; Z87.891 Personal history of nicotine dependence; R94.31 Abnormal electrocardiogram [ECG] [EKG]
CPT/HCPCS: 36415; 80053; 82803; 83605; 83690; 83880; 84484; 85025; 85610; 85730; 86140; 87040; 93005; 94002; 96361; 96374; 96375; 96376; 99291; J0692; J2060; J2270; J7030